=== PATIENT | female | born 1940 | race Caucasian/White ===

== ENCOUNTER 2016-08-31 17:01 | Inpatient (IN) | payer MEDICARE, OTHER ==
[~2016-08-31] VITALS: Ht 157.5 cm; Wt 90.2 kg
[~2016-08-31 17:01] MED LIST: CYMB30CA PO; ENAL5TAB98 PO; LEVO100T4 PO; METF850T PO; OXYC15TA3 PO; OXYC1SOL5 PO; RIVA10 PO; ROSU10 PO
--- NOTE | 2016-08-31 17:10 | PD ---
HPI Chief Complaint: dyspnea Time Seen by Provider: 17:06 Travel History International Travel<30 days: No Contact w/Intl Traveler<30days: No History of Present Illness HPI Patient comes in complaining of dyspnea ongoing for approximately 2-3 days. Patient states yesterday she began having some edema bilateral lower extremities. Patient denies a history of CHF or other heart disease. Patient reports history of COPD and states this does not feel the same. Patient states she's had increased dyspnea on exertion and and has had to walk shorter and shorter distances secondary to the dyspnea. Patient saw her primary care doctor today reported have O2 sats in the upper 80s and was sent to the emergency department via EMS for further treatment and evaluation. Patient denies any nausea, vomiting, chest pain, back pain, dull pain, headache, numbness or tingling anywhere, or diaphoresis. PFSH Past Medical History Arthritis: Yes Asthma: No Autoimmune Disease: No Blood Disorders: No Anxiety: No Depression: No Heart Rhythm Problems: No Cancer: No Cardiovascular Problems: Yes High Cholesterol: Yes Chemotherapy: No Chest Pain: No Congestive Heart Failure: No COPD: No Cerebrovascular Accident: No Diabetes: Yes Diminished Hearing: No Endocrine: Yes Gastrointestinal Disorders: Yes GERD: Yes (GERD) Glaucoma: No Genitourinary: No Headaches: No Hepatitis: No Hiatal Hernia: No Hypertension: Yes Immune Disorder: No Implanted Vascular Access Dvce: Yes Kidney Stones: No Musculoskeletal: Yes Neurologic: Yes (NEUROPATHY R/T DM) Psychiatric: No Reproductive: No Respiratory: No Migraines: No Myocardial Infarction: No Radiation Therapy: No Renal Failure: No Seizures: No Sickle Cell Disease: No Sleep Apnea: No Thyroid Disease: Yes (HYPOTHYROID) Ulcer: No Menopausal: Yes Tubal Ligation: Yes Past Surgical History Abdominal Surgery: No AICD: No Appendectomy: No Arteriovenous Shunt: No Body Medical Devices: LUMBAR HARDWARE Cardiac Surgery: No Cholecystectomy: No Ear Surgery: No Endocrine Surgery: No Eye Surgery: Yes (BILATERAL CATARACT REMOVAL) Genitourinary Surgery: No Gynecologic Surgery: Yes (TUBAL LIGATION) Insulin Pump: No Joint Replacement: Yes (RIGHT KNEE, LEFT HIP) Neurologic Surgery: Yes (LUMBAR LAMINECTOMY WITH FUSION 2002) Oral Surgery: Yes (TONSILLECTOMY) Pacemaker: No Thoracic Surgery: No Tonsillectomy: Yes Other Surgery: Yes (spinal fusion L4-L5) Social History Alcohol Use: No Tobacco Use: No Substance Use: No Allergies-Medications (Allergen,Severity, Reaction): Coded Allergies: Ciprofloxacin (Unverified Allergy, Severe, RASH, ITCH, 08/31/16) Reported Meds & Prescriptions Reported Meds & Active Scripts Active Reported Oxycodone (Oxycodone HCl) 15 Mg Tab 15 Mg PO Q6H PRN Crestor (Rosuvastatin Calcium) 10 Mg Tab 10 Mg PO HS Metformin (Metformin HCl) 850 Mg Tab 850 Mg PO TIDPC With meals Biotin 5 Mg Tab 5 Mg PO DAILY Levothyroxine (Levothyroxine Sodium) 100 Mcg Tab 100 Mcg PO DAILY Aspir-81 (Aspirin) 81 Mg Tabdr 81 Mg PO DAILY Albuterol Neb (Albuterol Sulfate) 2.5 Mg/3 Ml Neb 2.5 Mg NEB Q6HR NEB PRN Zyrtec Allergy (Cetirizine HCl) 10 Mg Tab 10 Mg PO DAILY Enalapril (Enalapril Maleate) 10 Mg Tab 10 Mg PO BID Proair Hfa 8.5 GM Inh (Albuterol Sulfate) 90 Mcg/Act Aer 2 Puff INH QID PRN 108 mcg/actuation Stiolto Respimat Inh (Tiotropium-Olodaterol Inh) 2.5-2.5 Mcg/Act Aero 1 Puff INH BID Review of Systems Except as stated in HPI: all other systems reviewed are Neg Physical Exam Narrative GENERAL: Well-developed, overly nourished, in no acute distress, and non-ill appearing. SKIN: Warm and dry. HEAD: Atraumatic. Normocephalic. EYES: Pupils equal and round. EOMI. No scleral icterus. No injection or drainage. ENT: No nasal bleeding or discharge. Mucous membranes pink and moist. NECK: Trachea midline. Supple. No nuclear rigidity. CARDIOVASCULAR: Regular rate and rhythm. No murmur appreciated. RESPIRATORY: No accessory muscle use. No respiratory distress. Decreased breath sounds throughout. Breath sounds equal bilaterally. GASTROINTESTINAL: Abdomen soft, non-tender, nondistended. Hepatic and splenic margins not palpable. Normal bowel sounds 4. No pulsatile mass. MUSCULOSKELETAL: No obvious deformities. No clubbing. No cyanosis. 1+ pitting edema bilateral lower extremities. Full range of motion. NEUROLOGICAL: Awake and alert. No obvious cranial nerve deficits. Motor grossly within normal limits. Normal speech. PSYCHIATRIC: Appropriate mood and affect; insight and judgment normal. Data Data Last Documented VS Vital Signs Date Time Temp Pulse Resp B/P Pulse Ox O2 Delivery O2 Flow Rate FiO2 08/31/16 19:25 65 18 99 Room Air 08/31/16 19:25 98.1 178/76 08/31/16 17:44 2 Orders Complete Blood Count With Diff (08/31/16 17:04) Comprehensive Metabolic Panel (08/31/16 17:04) B-Type Natriuretic Peptide (08/31/16 17:04) Act Partial Throm Time (Ptt) (08/31/16 17:04) Prothrombin Time / Inr (Pt) (08/31/16 17:04) Ckmb (Isoenzyme) Profile (08/31/16 17:04) Troponin I (08/31/16 17:04) Urinalysis - C+S If Indicated (08/31/16 17:04) Iv Access Insert/Monitor (08/31/16 17:04) Electrocardiogram (08/31/16 17:04) Ecg Monitoring (08/31/16 17:04) Oximetry (08/31/16 17:04) Oxygen Administration (08/31/16 17:04) Chest, Single Ap (08/31/16 17:04) Sodium Chloride 0.9% Flush (Ns Flush) (08/31/16 17:15) Urine Culture (08/31/16 17:45) CKMB (08/31/16 17:45) CKMB% (08/31/16 17:45) Ct Pulmonary Angiogram (08/31/16 ) Albuterol-Ipratropium Neb (Duoneb Neb) (08/31/16 19:30) Iohexol 350 Inj (Omnipaque 350 Inj) (08/31/16 22:52) Labs Laboratory Tests Test 08/31/16 17:45 White Blood Count 7.7 TH/MM3 Red Blood Count 4.07 MIL/MM3 Hemoglobin 11.8 GM/DL Hematocrit 35.8 % Mean Corpuscular Volume 88.1 FL Mean Corpuscular Hemoglobin 29.1 PG Mean Corpuscular Hemoglobin 33.0 % Concent Red Cell Distribution Width 13.8 % Platelet Count 240 TH/MM3 Mean Platelet Volume 8.7 FL Neutrophils (%) (Auto) 63.7 % Lymphocytes (%) (Auto) 20.3 % Monocytes (%) (Auto) 7.3 % Eosinophils (%) (Auto) 8.1 % Basophils (%) (Auto) 0.6 % Neutrophils # (Auto) 4.9 TH/MM3 Lymphocytes # (Auto) 1.6 TH/MM3 Monocytes # (Auto) 0.6 TH/MM3 Eosinophils # (Auto) 0.6 TH/MM3 Basophils # (Auto) 0.0 TH/MM3 CBC Comment DIFF FINAL Differential Comment Prothrombin Time 10.7 SEC Prothromb Time International 1.0 RATIO Ratio Activated Partial 24.0 SEC Thromboplast Time Urine Color LIGHT-YELLOW Urine Turbidity CLEAR Urine pH 7.0 Urine Specific [place] 1.010 Urine Protein TRACE mg/dL Urine Glucose (UA) NEG mg/dL Urine Ketones NEG mg/dL Urine Occult Blood NEG Urine Nitrite NEG Urine Bilirubin NEG Urine Urobilinogen LESS THAN 2.0 MG/DL Urine Leukocyte Esterase NEG Urine RBC 1 /hpf Urine WBC 1 /hpf Urine Bacteria MANY /hpf Microscopic Urinalysis Comment CULTURE INDICATED Sodium Level 141 MEQ/L Potassium Level 4.1 MEQ/L Chloride Level 105 MEQ/L Carbon Dioxide Level 28.2 MEQ/L Anion Gap 8 MEQ/L Blood Urea Nitrogen 22 MG/DL Creatinine 1.13 MG/DL Estimat Glomerular Filtration 47 ML/MIN Rate Random Glucose 119 MG/DL Calcium Level 9.2 MG/DL Total Bilirubin 0.4 MG/DL Aspartate Amino Transf 19 U/L (AST/SGOT) Alanine Aminotransferase 21 U/L (ALT/SGPT) Alkaline Phosphatase 79 U/L Total Creatine Kinase 159 U/L Creatine Kinase MB 3.2 NG/ML Troponin I 0.02 NG/ML B-Type Natriuretic Peptide 190 PG/ML Total Protein 7.6 GM/DL Albumin 3.9 GM/DL [facility] Medical Decision Making Medical Screen Exam Complete: Yes Emergency Medical Condition: Yes Differential Diagnosis CHF exacerbation, COPD exacerbation, pneumonia, acute coronary syndrome, PE, other Narrative Course Patient seen and examined. Initial O2 radiology studies were obtained and reviewed. CTA was ordered to rule out PE which is currently pending. Patient was signed out to Dr. Joe pending CTA results. Please see her documentation for final diagnosis and disposition. Florentin Coffman Aug 31, 2016 17:10
[2016-08-31] MEDS ORDERED: SODIUM CHLORIDE 0.9% FLUSH 5 ML FLUSH IVF PRN (17:15)
--- NOTE | 2016-08-31 17:30 | RADRPT ---
EXAM DATE/TIME: 08/31/2016 17:21 [facility] COMPARISON: No previous studies available for comparison. INDICATIONS : Short of breath. MEDICAL HISTORY : SURGICAL HISTORY : ENCOUNTER: Initial ACUITY: 1 day PAIN SCORE: 5/10 LOCATION: Bilateral upper chest FINDINGS: A single view of the chest demonstrates the lungs to be symmetrically aerated without evidence of mas s, infiltrate or effusion. The cardiomediastinal contours are unremarkable with mild atherosclerotic changes of aorta.. Osseous structures are intact. CONCLUSION: No acute disease. Anthony Lane MD on August 31, 2016 at 17:28 Board Certified Radiologist. This report was verified electronically.
[2016-08-31 17:39] VITALS: BP 168/73; PULSE 70; RESP 22; TEMP 98.7; O2SAT 88
[2016-08-31 17:41] VITALS: BP 168/73; PULSE 70; RESP 24; O2SAT 99
[2016-08-31 18:26] LABS: BACTERIA, URINE MANY /hpf; BLOOD, URINE NEG (NEG); COMMENT (UR) CULTURE INDICATED; CULTURE IF INDICATED CULTURE INDICATED; GLUCOSE,URINE NEG (NEG); KETONE, URINE NEG (NEG); NITRITE,URINE NEG (NEG); URINE COLOR LIGHT-YELLOW (YELLW/STRAW)
[2016-08-31] MEDS ORDERED: LEVO100T5 PO (18:30)
[2016-08-31] MEDS ORDERED: OXYC15TA PO (18:30)
[2016-08-31] MEDS ORDERED: METF850T PO (18:30)
[2016-08-31] MEDS ORDERED: ALBU0.08 NEB (18:30)
[2016-08-31] MEDS ORDERED: BIOT5TAB PO (18:30)
[2016-08-31] MEDS ORDERED: ZYRT10TA PO (18:30)
[2016-08-31] MEDS ORDERED: ROSU10 PO (18:30)
[2016-08-31] MEDS ORDERED: ENAL10TA PO (18:30)
[2016-08-31] MEDS ORDERED: ASPI81TA81 PO (18:30)
[2016-08-31] MEDS ORDERED: ALBUAER3 INH (18:30)
[2016-08-31] MEDS ORDERED: TIOT1AER INH (18:30)
--- NOTE | 2016-08-31 18:37 | PD ---
Physical Exam Date Seen by Provider: Aug 31, 2016 Time Seen by Provider: 17:30 Narrative I, Dr. Virk, have reviewed the advance practice practitioner's documentation and am in agreement, met with the patient face to face, made the diagnosis, and the medical decision making was done by me. *My assessment and Findings: Patient seen and evaluated with PA, please see PA note for further details. Here with shortness of breath, leg swelling, 2 pillow orthopnea, which she states is new to her, does not feel like her previous COPD. On exam, she has mild respiratory distress, I hear bibasilar crackles up to the mid lung. Worse on the right than the left. Bilateral leg swelling. Lab work, BNP, chest x-ray was ordered for the patient. Last 24 hours Impressions Chest X-Ray 08/31/16 1704 Signed Impressions: Service Date/Time: Wednesday, August 31, 2016 17:21 - CONCLUSION: No acute disease. Anthnoy Lane MD Laboratory Tests Test 08/31/16 17:45 Eosinophils (%) (Auto) 8.1 % (0.0-4.0) Eosinophils # (Auto) 0.6 TH/MM3 (0-0.4) Activated Partial 24.0 SEC Thromboplast Time (24.3-30.1) Urine Bacteria MANY /hpf (NONE) Blood Urea Nitrogen 22 MG/DL (7-18) Creatinine 1.13 MG/DL (0.50-1.00) Estimat Glomerular Filtration 47 ML/MIN (>89) Rate Random Glucose 119 MG/DL (74-106) B-Type Natriuretic Peptide 190 PG/ML (0-100) Chest x-ray did not show any signs of acute processes. Patient was given Lasix and nebulizers in the ER. CTA ordered for further evaluation of new leg swelling and shortness of breath. Rule out PE. Data Data Last Documented VS Vital Signs Date Time Temp Pulse Resp B/P Pulse Ox O2 Delivery O2 Flow Rate FiO2 08/31/16 17:44 99 Nasal Cannula 2 08/31/16 17:41 70 24 168/73 08/31/16 17:39 98.7 Orders Complete Blood Count With Diff (08/31/16 17:04) Comprehensive Metabolic Panel (08/31/16 17:04) B-Type Natriuretic Peptide (08/31/16 17:04) Act Partial Throm Time (Ptt) (08/31/16 17:04) Prothrombin Time / Inr (Pt) (08/31/16 17:04) Ckmb (Isoenzyme) Profile (08/31/16 17:04) Troponin I (08/31/16 17:04) Urinalysis - C+S If Indicated (08/31/16 17:04) Iv Access Insert/Monitor (08/31/16 17:04) Electrocardiogram (08/31/16 17:04) Ecg Monitoring (08/31/16 17:04) Oximetry (08/31/16 17:04) Oxygen Administration (08/31/16 17:04) Chest, Single Ap (08/31/16 17:04) Sodium Chloride 0.9% Flush (Ns Flush) (08/31/16 17:15) Urine Culture (08/31/16 17:45) CKMB (08/31/16 17:45) CKMB% (08/31/16 17:45) Ct Pulmonary Angiogram (08/31/16 ) Albuterol-Ipratropium Neb (Duoneb Neb) (08/31/16 19:30) Labs Laboratory Tests Test 08/31/16 17:45 White Blood Count 7.7 TH/MM3 Red Blood Count 4.07 MIL/MM3 Hemoglobin 11.8 GM/DL Hematocrit 35.8 % Mean Corpuscular Volume 88.1 FL Mean Corpuscular Hemoglobin 29.1 PG Mean Corpuscular Hemoglobin 33.0 % Concent Red Cell Distribution Width 13.8 % Platelet Count 240 TH/MM3 Mean Platelet Volume 8.7 FL Neutrophils (%) (Auto) 63.7 % Lymphocytes (%) (Auto) 20.3 % Monocytes (%) (Auto) 7.3 % Eosinophils (%) (Auto) 8.1 % Basophils (%) (Auto) 0.6 % Neutrophils # (Auto) 4.9 TH/MM3 Lymphocytes # (Auto) 1.6 TH/MM3 Monocytes # (Auto) 0.6 TH/MM3 Eosinophils # (Auto) 0.6 TH/MM3 Basophils # (Auto) 0.0 TH/MM3 CBC Comment DIFF FINAL Differential Comment Prothrombin Time 10.7 SEC Prothromb Time International 1.0 RATIO Ratio Activated Partial 24.0 SEC Thromboplast Time Urine Color LIGHT-YELLOW Urine Turbidity CLEAR Urine pH 7.0 Urine Specific [place] 1.010 Urine Protein TRACE mg/dL Urine Glucose (UA) NEG mg/dL Urine Ketones NEG mg/dL Urine Occult Blood NEG Urine Nitrite NEG Urine Bilirubin NEG Urine Urobilinogen LESS THAN 2.0 MG/DL Urine Leukocyte Esterase NEG Urine RBC 1 /hpf Urine WBC 1 /hpf Urine Bacteria MANY /hpf Microscopic Urinalysis Comment CULTURE INDICATED Sodium Level 141 MEQ/L Potassium Level 4.1 MEQ/L Chloride Level 105 MEQ/L Carbon Dioxide Level 28.2 MEQ/L Anion Gap 8 MEQ/L Blood Urea Nitrogen 22 MG/DL Creatinine 1.13 MG/DL Estimat Glomerular Filtration 47 ML/MIN Rate Random Glucose 119 MG/DL Calcium Level 9.2 MG/DL Total Bilirubin 0.4 MG/DL Aspartate Amino Transf 19 U/L (AST/SGOT) Alanine Aminotransferase 21 U/L (ALT/SGPT) Alkaline Phosphatase 79 U/L Total Creatine Kinase 159 U/L Creatine Kinase MB 3.2 NG/ML Troponin I 0.02 NG/ML B-Type Natriuretic Peptide 190 PG/ML Total Protein 7.6 GM/DL Albumin 3.9 GM/DL [facility] Medical Record Reviewed: Yes Supervised Visit with MART: Yes Differential Diagnosis CHF versus pneumonia versus COPD exacerbation versus bronchitis versus PE Diagnosis Primary Impression: SHORTNESS OF BREATH Condition: Stable Pia Virk MD Aug 31, 2016 18:37
[2016-08-31 18:48] LABS: AUTOMATED NEUTROPHIL # 4.9 TH/MM3 (1.8-7.7); BASOPHIL % 0.6 % (0.0-2.0); EOSINOPHIL # 0.6 TH/MM3 (0-0.4); EOSINOPHIL % 8.1 % (0.0-4.0); HEMATOCRIT 35.8 % (35.0-46.0); HEMO FLAGS DIFF FINAL; LYMPH % 20.3 % (9.0-44.0); LYMPHOCYTE # 1.6 TH/MM3 (1.0-4.8); MEAN CELL VOLUME 88.1 FL (80.0-100.0); MEAN CORPUSCULAR HEMOGLOBIN 29.1 PG (27.0-34.0); MONO % 7.3 % (0.0-8.0); NEUT % 63.7 % (16.0-70.0); PLATELET COUNT 240 TH/MM3 (150-450); RED BLOOD COUNT 4.07 MIL/MM3 (4.00-5.30); RED CELL DISTRIBUTION WIDTH 13.8 % (11.6-17.2); WHITE BLOOD COUNT 7.7 TH/MM3 (4.0-11.0)
[2016-08-31 18:59] LABS: PROTHROMBIN TIME - PATIENT 10.7 SEC (9.8-11.6)
[2016-08-31 19:04] LABS: ANION GAP 8 MEQ/L (5-15); AST (GOT) 19 U/L (15-37); BICARBONATE 28.2 MEQ/L (21.0-32.0); BLOOD UREA NITROGEN 22 MG/DL (7-18); CHLORIDE 105 MEQ/L (98-107); GLOMERULAR FILTRATION RATE 47 ML/MIN (>89); POTASSIUM 4.1 MEQ/L (3.5-5.1); SODIUM (NA) 141 MEQ/L (136-145)
[2016-08-31 19:09] LABS: ALKALINE PHOSPHATASE 79 U/L (45-117); ALT (GPT) 21 U/L (10-53); CREATINE KINASE 159 U/L (26-192); TOTAL BILIRUBIN ADULT 0.4 MG/DL (0.2-1.0)
[2016-08-31 19:21] LABS: CKMB 3.2 NG/ML (0.5-3.6)
[2016-08-31 19:25] VITALS: BP 178/76; PULSE 67; RESP 18; TEMP 98.1; O2SAT 99
[2016-08-31] MEDS ORDERED: RESP: ALBUTEROL 2.5 MG/IPRATROPIUM 0.5 MG NEB (SCH) INH ONE (19:30)
--- NOTE | 2016-08-31 19:53 | PD ---
Physical Exam Narrative General: The patient is a well-developed well-nourished female in no acute distress Head and Neck exam: Head is normocephalic atraumatic. Eyes: Pupils are equal round and reactive to light. Nose: Midline septum with pink mucous membranes Mouth: Dentition unremarkable. Moist mucus membranes. Posterior oropharynx is not erythematous. No tonsillar hypertrophy. Uvula midline. Airway patent. Neck: No palpable lymphadenopathy. No nuchal rigidity. No thyromegaly. Cardiovascular: Regular rate and rhythm without murmurs, gallops, or rubs. No pulse deficit to the extremities and simultaneous auscultation and palpation of the radial artery. Lungs: Soft expiratory wheezes audible on the left lower lung base, no rhonchi or crackles are audible bilaterally. She is saturating 98% on nasal cannula oxygen. Abdomen: Soft, without tenderness to palpation in all 4 quadrants of the abdomen. No guarding, rebound, or rigidity. Normal bowel sounds are audible. Extremities: No clubbing or cyanosis.Trace to 1 plus pitting edema of bilateral lower extremities. Neurologic Exam: Grossly nonfocal. Data Data Last Documented VS Vital Signs Date Time Temp Pulse Resp B/P Pulse Ox O2 Delivery O2 Flow Rate FiO2 08/31/16 23:06 79 18 181/77 96 Nasal Cannula 2 08/31/16 19:25 98.1 Orders Complete Blood Count With Diff (08/31/16 17:04) Comprehensive Metabolic Panel (08/31/16 17:04) B-Type Natriuretic Peptide (08/31/16 17:04) Act Partial Throm Time (Ptt) (08/31/16 17:04) Prothrombin Time / Inr (Pt) (08/31/16 17:04) Ckmb (Isoenzyme) Profile (08/31/16 17:04) Troponin I (08/31/16 17:04) Urinalysis - C+S If Indicated (08/31/16 17:04) Iv Access Insert/Monitor (08/31/16 17:04) Electrocardiogram (08/31/16 17:04) Ecg Monitoring (08/31/16 17:04) Oximetry (08/31/16 17:04) Oxygen Administration (08/31/16 17:04) Chest, Single Ap (08/31/16 17:04) Sodium Chloride 0.9% Flush (Ns Flush) (08/31/16 17:15) Urine Culture (08/31/16 17:45) CKMB (08/31/16 17:45) CKMB% (08/31/16 17:45) Ct Pulmonary Angiogram (08/31/16 ) Albuterol-Ipratropium Neb (Duoneb Neb) (08/31/16 19:30) Iohexol 350 Inj (Omnipaque 350 Inj) (08/31/16 22:52) Enalaprilat Inj (Vasotec Inj) (08/31/16 23:15) Methylprednisolone So Succ Inj (Solumedr (09/01/16 00:00) Admit Order (Ed Use Only) (08/31/16 23:51) Labs Laboratory Tests Test 08/31/16 17:45 Prothrombin Time 10.7 SEC Prothromb Time International 1.0 RATIO Ratio Activated Partial 24.0 SEC Thromboplast Time Sodium Level 141 MEQ/L Potassium Level 4.1 MEQ/L Chloride Level 105 MEQ/L Carbon Dioxide Level 28.2 MEQ/L Anion Gap 8 MEQ/L Blood Urea Nitrogen 22 MG/DL Creatinine 1.13 MG/DL Estimat Glomerular Filtration 47 ML/MIN Rate Random Glucose 119 MG/DL Calcium Level 9.2 MG/DL Total Bilirubin 0.4 MG/DL Aspartate Amino Transf 19 U/L (AST/SGOT) Alanine Aminotransferase 21 U/L (ALT/SGPT) Alkaline Phosphatase 79 U/L Total Creatine Kinase 159 U/L Creatine Kinase MB 3.2 NG/ML Troponin I 0.02 NG/ML B-Type Natriuretic Peptide 190 PG/ML Total Protein 7.6 GM/DL Albumin 3.9 GM/DL White Blood Count 7.7 TH/MM3 Red Blood Count 4.07 MIL/MM3 Hemoglobin 11.8 GM/DL Hematocrit 35.8 % Mean Corpuscular Volume 88.1 FL Mean Corpuscular Hemoglobin 29.1 PG Mean Corpuscular Hemoglobin 33.0 % Concent Red Cell Distribution Width 13.8 % Platelet Count 240 TH/MM3 Mean Platelet Volume 8.7 FL Neutrophils (%) (Auto) 63.7 % Lymphocytes (%) (Auto) 20.3 % Monocytes (%) (Auto) 7.3 % Eosinophils (%) (Auto) 8.1 % Basophils (%) (Auto) 0.6 % Neutrophils # (Auto) 4.9 TH/MM3 Lymphocytes # (Auto) 1.6 TH/MM3 Monocytes # (Auto) 0.6 TH/MM3 Eosinophils # (Auto) 0.6 TH/MM3 Basophils # (Auto) 0.0 TH/MM3 CBC Comment DIFF FINAL Differential Comment Urine Color LIGHT-YELLOW Urine Turbidity CLEAR Urine pH 7.0 Urine Specific [place] 1.010 Urine Protein TRACE mg/dL Urine Glucose (UA) NEG mg/dL Urine Ketones NEG mg/dL Urine Occult Blood NEG Urine Nitrite NEG Urine Bilirubin NEG Urine Urobilinogen LESS THAN 2.0 MG/DL Urine Leukocyte Esterase NEG Urine RBC 1 /hpf Urine WBC 1 /hpf Urine Bacteria MANY /hpf Microscopic Urinalysis Comment CULTURE INDICATED MDM Medical Record Reviewed: Yes Supervised Visit with MART: Yes Interpretation(s) Last Impressions Chest X-Ray 08/31/16 1707 Signed Impressions: Service Date/Time: Wednesday, August 31, 2016 17:21 - CONCLUSION: No acute disease. Anthony Lane MD Differential Diagnosis COPD exacerbation, versus pneumonia, versus congestive heart failure exacerbation, versus pulmonary embolus Narrative Course I, Dr. Joe, have reviewed the advance practice practitioner's documentation and am in agreement, met with the patient face to face, made the diagnosis, and the medical decision making was done by me. The patient was initially evaluated by Florentin, the physician carpenter assistant. Please see his complete history and physical. *My assessment and Findings: The patient is a 76-year-old female who presents to [facility] emergency Department with a history of shortness of breath that she reports seem to be different from her usual COPD exacerbation and began approximately 3 days ago. She denies having a productive cough. She reports that she does have lower extremity edema which is also new. She denies having any associated chest pain. She denies having any nausea or vomiting. She denies having any diarrhea. The patient's physical examination was remarkable for some mild wheezing, hypoxemia on room air improved with the nebulizer treatment and supplemental nasal cannula O2. Her initial workup ensued including laboratory studies and a chest x-ray. Her laboratory studies are remarkable for white count 7.7, hemoglobin 11.8, platelets 240 with eosinophils of 8.1, CMP is remarkable for BUN of 22, creatinine 1.13, glucose 119 initial set of cardiac enzymes are negative, BNP is 190, INR 1.0, urinalysis is unremarkable. Chest x-ray showed no acute abnormality. A CTA to rule out PE has been ordered. The patient was treated with nebulizer treatments , Solu-Medrol 125 mg IV was administered. CTA to rule out pulmonary embolism was negative. The patient will be admitted to the hospital for continued evaluation and treatment, hypoxemia on room air. The patients results were discussed with the patient, including the plan of care. I explained that further testing and/ or monitoring is indicated based on the patients history, examination, and/ or laboratory findings. Therefore, I recommended admission for additional evaluation. The patient expressed understanding and was agreeable with this plan. The patient was admitted to the hospital in stable condition and [facility] Physician Communication Physician Communication The patient's case was discussed with Keaton Simental, he did agree to admit the patient for further evaluation and treatment at [facility]. Diagnosis Primary Impression: SHORTNESS OF BREATH Additional Impression: COPD exacerbation Admitting Information Admitting Physician Requests: Observation Condition: Stable Sola Joe MD Aug 31, 2016 19:53
[2016-08-31] MEDS ORDERED: IOHEXOL 350 MG/ML 10 ML VIAL (for RAD DIAG) IV ONE (22:52)
[2016-08-31 23:06] VITALS: BP 181/77; PULSE 79; RESP 18; O2SAT 96
--- NOTE | 2016-08-31 23:08 | RADRPT ---
EXAM DATE/TIME: 08/31/2016 22:49 [facility] COMPARISON: No previous studies available for comparison. INDICATIONS : Shortness of breath for three days. IV CONTRAST: 71 cc Omnipaque 350 (iohexol) IV RADIATION DOSE: 23.38 CTDIvol (mGy) MEDICAL HISTORY : Gastroesophageal reflux disease. Deep venous thrombosis. SURGICAL HISTORY : None. ENCOUNTER: Initial ACUITY: 3 days PAIN SCALE: 0/10 LOCATION: chest TECHNIQUE: Volumetric scanning of the chest was performed using a pulmonary embolism protocol MIP images were re constructed. Using automated exposure control and adjustment of the mA and/or kV according to patien t size, radiation dose was kept as low as reasonably achievable to obtain optimal diagnostic quality images. Images are somewhat limited due to motion artifact. FINDINGS: PULMONARY ARTERIES: No definite filling defects are seen in the pulmonary arteries through the segmental level. LUNGS: There is central lobar and bullous emphysema throughout both lung lui characteristic for COPD. The re is chronic interstitial changes bilaterally. No acute pulmonary infiltrates are demonstrated. PLEURAE: There is no pleural thickening or pleural effusion. MEDIASTINUM: There is a nonspecific mildly prominent lymph nodes in the mediastinum. There is a pretracheal lymph node measuring 2.1 cm and a subcarinal lymph node measuring 2.7 cm. The heart size is enlarged. MUSCULOSKELETAL: Within normal limits for patient age. Bony degenerative changes. MISCELLANEOUS: The visualized upper abdominal organs demonstrate no acute abnormality. CONCLUSION: 1. No evidence of pulmonary embolism 2. 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 3. No acute pulmonary infiltrates 4. Several prominent nonspecific mediastinal lymph nodes. If clinically indicated, a PET/CT could be performed for further evaluation on a nonemergent outpatient basis.. Contreras Gorman MD on August 31, 2016 at 23:01 Board Certified Radiologist. This report was verified electronically.
[2016-08-31] MEDS ORDERED: ENALAPRILAT 1.25 MG/ML VIAL IV PUSH ONE (23:15)
[2016-09-01] VITALS (8 sets, daily range): BP systolic 134–188; BP diastolic 60–81; PULSE 66–98; RESP 16–18; TEMP 98.1–98.4; O2SAT 93–100
[2016-09-01] MEDS ORDERED: BISACODYL 10 MG SUPP PR PRN
[2016-09-01] MEDS ORDERED: ONDANSETRON HCL 4 MG/2 ML VIAL IVP PRN
[2016-09-01] MEDS ORDERED: SODIUM CHLORIDE 0.9% FLUSH 5 ML FLUSH IVF PRN
[2016-09-01] MEDS ORDERED: RESP: ALBUTEROL 2.5 MG/3 ML NEB (PRN) INH
[2016-09-01] MEDS ORDERED: SENNOSIDES 8.6 MG TAB PO PRN
[2016-09-01] MEDS ORDERED: ACETAMINOPHEN 325 MG TAB PO PRN
[2016-09-01] MEDS ORDERED: methylPREDNISolone SOD SUCC 125 MG/2 ML VIAL IV PUSH ONE
[2016-09-01] MEDS ORDERED: TEMAZEPAM 7.5 MG CAP PO PRN (00:30)
[2016-09-01] MEDS ORDERED: GLUCAGON 1 MG/ML VIAL OTHER PRN (00:45)
[2016-09-01] MEDS ORDERED: cloNIDine HCL 0.1 MG TAB PO PRN (00:45)
[2016-09-01] MEDS ORDERED: DEXTROSE 50% IN WATER 50 ML VIAL(D50) IV PUSH PRN (00:45)
[2016-09-01] MEDS: ENOXAPARIN SODIUM 40 MG/0.4 ML SYRINGE SQ SCH ×2 (01:01→23:23)
[2016-09-01] MEDS: ENALAPRIL MALEATE 10 MG TAB PO SCH ×3 (01:46→20:57)
[2016-09-01] MEDS: RESP: ALBUTEROL 2.5 MG/IPRATROPIUM 0.5 MG NEB (SCH) INH ×4 (04:44→20:41)
[2016-09-01] MEDS: INSULIN NovoLIN REGULAR SUPPLEMENTAL SCALE SQ SCH ×4 (07:00→20:57)
[2016-09-01] MEDS: methylPREDNISolone SOD SUCC 125 MG/2 ML VIAL IVP SCH ×4 (07:30→23:20)
[2016-09-01] MEDS: SODIUM CHLORIDE 0.9% FLUSH 5 ML FLUSH IVF SCH ×2 (09:42→20:58)
--- NOTE | 2016-09-01 09:43 | MH ---
cc: ABDIAS MOCTEZUMA MD DATE OF ADMISSION 08/31/[address] Duncan CHIEF COMPLAINT Shortness of breath HISTORY OF PRESENT ILLNESS This is a pleasant 76 year-old female with a known history of COPD. She does take inhalers and uses as needed oxygen at home for her history of COPD who feels like she has become more short of breath over the last several days. She felt like she had a little bit of edema yesterday in her right leg. Today, it seems like it was more in the left leg. She went to see Dr. Duncan today who was concerned and sent her to the emergency room. The patient states she has not been coughing. She is not having any chest pain or chest pressure. She does have some shortness of breath with exertion. She is not complaining of shortness of breath at rest. She is not having fever, chills, nausea or vomiting. She is taking her medication as prescribed and she denies any other specific changes in her recent health. MEDICATIONS On admission, please see the chart. ALLERGIES CIPROFLOXACIN PAST MEDICAL HISTORY Includes: 1. Hypertension 2. Diabetes 3. Hypothyroidism 4. GERD 5. Neuropathy PAST SURGICAL HISTORY 1. Tubal ligation 2. An L4-5 fusion 3. Bilateral total knee replacements 4. Left total hip replacement 5. Tonsillectomy 6. Bilateral cataracts SOCIAL HISTORY The patient quit smoking 20 years. She has been for 14 years (her from COPD). Alcohol is very rare. FAMILY HISTORY Noncontributory to this admission. REVIEW OF SYSTEMS The patient states she has more fatigued and has been for several months. Her weight has been stable. Her blood sugars have been stable running between 99 and 126. She had a bout of COPD exacerbation in July and was placed on steroids and felt better with those. A 12-point review of systems shows no other pertinent findings. Also, she states she has seen Dr. Peterson in the past and has had an echocardiogram several years ago and it was reported to be normal. PHYSICAL EXAMINATION VITAL SIGNS: Afebrile, pulse 79, respirations 18, blood pressure 181/77, O2 sat is 96% on two liters. GENERAL: This is a 76 year-old female resting comfortably in bed in no acute distress. HEAD, EYES, EARS, NOSE, AND THROAT: Mucous membranes are moist. NECK: Supple. CARDIOVASCULAR: Regular rate and rhythm. RESPIRATORY: Breath sounds are diminished, few expiratory wheezes. GASTROINTESTINAL: Bowel sounds are present. No point tenderness, guarding or rebound. GENITOURINARY: No CVA tenderness. EXTREMITIES: Perfused. MUSCULOSKELETAL: Evidence of bilateral total knee replacements are noted. Evidence of a lumbar spinal surgery is noted. Trace left lower extremity edema. Hal's is negative. Distal pulses are palpable. No edema in the leg. NEUROLOGIC: Awake, alert and oriented. Speech is clear and fluent. Moving all extremities freely. Gait and station is not tested. INVESTIGATIONS CBC is normal. BUN is 22, creatinine is 1.13, GFR is estimated at 47, random glucose is 119, BNP is 190, troponin's normal. CPK normal. LFT's are normal. Urinalysis shows many bacteria. No nitrogen. No blood. No leukocyte esterase. INR is 1. Chest x-ray, no acute disease. Angiography of the chest showed: 1. No evidence of PE. 2. COPD with bullous emphysema 3. Chronic interstitial changes 4. No infiltrates. 5. Several prominent non-specific mediastinal nodes IMPRESSION 1. COPD exacerbation 2. Chronic kidney disease 3. Diabetes 4. Asymptomatic bacteruria DISCUSSION The patient is admitted to Dr. Moctezuma's services. The patient meets inpatient criteria because of her COPD exacerbation and her hypoxia on admission. Without hospitalization, she would be at a high risk of respiratory failure. During her hospital stay, she will be placed on IV steroids, nebulizers and oxygen. DVT prophylaxis will be provided. We will resume her home medications as indicated. The patient will be monitored closely and discharged when she is stable. Anticipated length of stay is three days. Anticipated discharge is home. Dictated by: Keaton Simental PA-C MD ROSIBEL Wolfe/MIGUEL ANGEL /12:28 AM /9:20 AM pt is seen & Examined d/w PT d/w Keaton palma Orders see H&P will f/u Abdias Moctezuma MD Sep 01, 2016 10:06 [facility]
--- NOTE | 2016-09-01 10:06 | HHI.PR ---
Objective Objective Results - Vital Signs Date Time Temp Pulse Resp B/P Pulse Ox O2 Delivery O2 Flow Rate FiO2 09/01/16 09:55 98 Nasal Cannula 1.00 09/01/16 09:41 74 17 188/81 94 09/01/16 04:44 100 Nasal Cannula 1.00 09/01/16 01:45 98.1 66 18 136/60 97 09/01/16 00:29 98.4 98 18 170/71 97 08/31/16 23:06 79 18 181/77 96 Nasal Cannula 2 08/31/16 19:25 65 18 99 Room Air 08/31/16 19:25 98.1 67 18 178/76 99 08/31/16 17:44 99 Nasal Cannula 2 08/31/16 17:41 98 Nasal Cannula 2 08/31/16 17:41 70 24 168/73 99 Room Air 2 08/31/16 17:39 98.7 70 22 168/73 88 Result Diagram: 08/31/16 1745 08/31/16 1745 Other Results Laboratory Tests Test 08/31/16 17:45 White Blood Count 7.7 Red Blood Count 4.07 Hemoglobin 11.8 Hematocrit 35.8 Mean Corpuscular Volume 88.1 Mean Corpuscular Hemoglobin 29.1 Mean Corpuscular Hemoglobin 33.0 Concent Red Cell Distribution Width 13.8 Platelet Count 240 Mean Platelet Volume 8.7 Neutrophils (%) (Auto) 63.7 Lymphocytes (%) (Auto) 20.3 Monocytes (%) (Auto) 7.3 Eosinophils (%) (Auto) 8.1 Basophils (%) (Auto) 0.6 Neutrophils # (Auto) 4.9 Lymphocytes # (Auto) 1.6 Monocytes # (Auto) 0.6 Eosinophils # (Auto) 0.6 Basophils # (Auto) 0.0 CBC Comment DIFF FINAL Differential Comment Prothrombin Time 10.7 Prothromb Time International 1.0 Ratio Activated Partial 24.0 Thromboplast Time Urine Color LIGHT-YELLOW Urine Turbidity CLEAR Urine pH 7.0 Urine Specific Dyer 1.010 Urine Protein TRACE Urine Glucose (UA) NEG Urine Ketones NEG Urine Occult Blood NEG Urine Nitrite NEG Urine Bilirubin NEG Urine Urobilinogen LESS THAN 2.0 Urine Leukocyte Esterase NEG Urine RBC 1 Urine WBC 1 Urine Bacteria MANY Microscopic Urinalysis Comment CULTURE INDICATED Sodium Level 141 Potassium Level 4.1 Chloride Level 105 Carbon Dioxide Level 28.2 Anion Gap 8 Blood Urea Nitrogen 22 Creatinine 1.13 Estimat Glomerular Filtration 47 Rate Random Glucose 119 Calcium Level 9.2 Total Bilirubin 0.4 Aspartate Amino Transf 19 (AST/SGOT) Alanine Aminotransferase 21 (ALT/SGPT) Alkaline Phosphatase 79 Total Creatine Kinase 159 Creatine Kinase MB 3.2 Troponin I 0.02 B-Type Natriuretic Peptide 190 Total Protein 7.6 Albumin 3.9 Date/Time Procedure Status Source Growth 08/31/16 17:45 Urine Culture Worksheet Urine Clean Catch Pending Physical Exam Physical Exam pt is seen & Examined d/w PT d/w Keaton see Orders see H&P will f/u Pat Moctezuma MD Sep 01, 2016 10:06
[2016-09-01] MEDS: metFORMIN HCL 850 MG TAB PO SCH ×2 (13:30→17:24)
--- NOTE | 2016-09-01 16:59 | EKG ---
Date Performed: 08/31/2016 Time Performed: 18:01:26 PTAGE: 76 years EKG: Sinus rhythm RIGHT BUNDLE BRANCH BLOCK LEFT ANTERIOR FASCICULAR BLOCK MINIMAL VOLTAGE CRITERIA FOR LVH, CONSIDER NORMAL VARIANT When compared to previous tracing, the patient is no longer Tachycardic. ABNORMAL ECG PREVIOUS TRACING : 04/24/2015 16.58 DOCTOR: Lilliana Reddy Interpretating Date/Time 09/01/2016 16:56:57
[2016-09-01] MEDS ORDERED: ATORVASTATIN 20 MG TAB PO SCH (21:00)
[2016-09-01] MEDS ORDERED: STIOLTO RESPIMAT INH SCH (21:00)
[2016-09-01] MEDS ORDERED: ENALAPRIL MALEATE 10 MG TAB PO SCH (21:00)
[2016-09-02] VITALS: BP 130/62; PULSE 80; RESP 16; TEMP 96.5; O2SAT 95
[2016-09-02] MEDS: RESP: ALBUTEROL 2.5 MG/IPRATROPIUM 0.5 MG NEB (SCH) INH ×2 (02:54→07:26)
[2016-09-02 04:08] VITALS: BP 143/69; PULSE 92; RESP 18; TEMP 96.6; O2SAT 95
[2016-09-02] MEDS ORDERED: LEVOTHYROXINE SODIUM 100 MCG TAB PO SCH (06:00)
[2016-09-02] MEDS: methylPREDNISolone SOD SUCC 125 MG/2 ML VIAL IVP SCH ×2 (06:08→10:36)
[2016-09-02] MEDS: INSULIN NovoLIN REGULAR SUPPLEMENTAL SCALE SQ SCH ×2 (06:14→13:06)
[2016-09-02 07:28] VITALS: O2SAT 93
[2016-09-02 08:00] VITALS: BP 142/67; PULSE 86; RESP 18; TEMP 97.4; O2SAT 94
[2016-09-02] MEDS: SODIUM CHLORIDE 0.9% FLUSH 5 ML FLUSH IVF SCH (09:00)
[2016-09-02] MEDS ORDERED: CETIRIZINE HCL 10 MG TAB PO SCH (09:00)
[2016-09-02] MEDS ORDERED: ASPIRIN EC 81 MG TABEC PO SCH (09:00)
[2016-09-02] MEDS: ENALAPRIL MALEATE 10 MG TAB PO SCH (10:35)
[2016-09-02] MEDS: metFORMIN HCL 850 MG TAB PO SCH ×2 (10:43→13:05)
--- NOTE | 2016-09-02 12:41 | HHI.PR ---
Subjective Remarks No acute chest pain No SOB No headache Appetite good. Color pink alert/oriented wants to go home. wants to take shower Objective Objective Results - Vital Signs Date Time Temp Pulse Resp B/P Pulse Ox O2 Delivery O2 Flow Rate FiO2 09/02/16 08:00 97.4 86 18 142/67 94 09/02/16 07:28 93 21 09/02/16 04:08 96.6 92 18 143/69 95 09/02/16 00:00 96.5 80 16 130/62 95 09/01/16 20:00 98.1 81 16 134/68 93 09/01/16 18:40 19 09/01/16 15:43 95 21 I/O 09/01/16 09/01/16 09/01/16 09/02/16 09/02/16 09/02/16 07:00 15:00 23:00 07:00 15:00 23:00 Intake Total 200 ml 200 ml Balance 200 ml 200 ml Intake Oral 200 ml 200 ml # Voids 1 1 # Bowel Movements 0 0 Result Diagram: 08/31/16 1745 08/31/16 1745 Other Results Last Impressions Chest X-Ray 08/31/16 1704 Signed Impressions: Service Date/Time: Wednesday, August 31, 2016 17:21 - CONCLUSION: No acute disease. Anthony Lane MD CT Angiography 08/31/16 0000 Signed Impressions: Service Date/Time: Wednesday, August 31, 2016 22:49 - CONCLUSION: 1. No evidence of pulmonary embolism 2. 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 3. No acute pulmonary infiltrates 4. Several prominent nonspecific mediastinal lymph nodes. If clinically indicated, a PET/CT could be performed for further evaluation on a nonemergent outpatient basis.. Contreras Gorman MD ROS General: Other (10 point ROS done. Unremarkable exam. No SOB) Physical Exam Physical Exam PHYSICAL EXAMINATION GENERAL: This is a 76 year-old female resting comfortably in bed in no acute distress. HEAD, EYES, EARS, NOSE, AND THROAT: Mucous membranes are moist. NECK: Supple. CARDIOVASCULAR: Regular rate and rhythm. No murmur , rub, gallop. RESPIRATORY: Breath sounds are diminished, few expiratory wheezes. GASTROINTESTINAL: Bowel sounds are present X 4 quads, No point tenderness, guarding or rebound. GENITOURINARY: No CVA tenderness. EXTREMITIES: No edema, except for trace lt. chronic MUSCULOSKELETAL: Tahir with purpose. NEUROLOGIC: Awake, alert and oriented. Speech is clear and fluent. Moving all extremities freely. Gait and station is not tested. Psy, mood /affect WNL. Objective Remarks Im ready to go home. A/P Assessment and Plan INVESTIGATIONS CBC is normal. BUN is 22, creatinine is 1.13, GFR is estimated at 47, random glucose is 119, BNP is 190, troponin's normal. CPK normal. LFT's are normal. Urinalysis shows many bacteria. No nitrogen. No blood. No leukocyte esterase. INR is 1. Chest x-ray, no acute disease. Angiography of the chest showed: 1. No evidence of PE. 2. COPD with bullous emphysema 3. Chronic interstitial changes 4. No infiltrates. 5. Several prominent non-specific mediastinal nodes IMPRESSION 1. COPD exacerbation 2. Chronic kidney disease 3. Diabetes 4. Asymptomatic bacteruria DISCUSSION The patient is admitted to Dr. Moctezuma's services. The patient meets inpatient criteria because of her COPD exacerbation and her hypoxia on admission. Without hospitalization, she would be at a high risk of respiratory failure. During her hospital stay, she will be placed on IV steroids, nebulizers and oxygen. DVT prophylaxis will be provided. We will resume her home medications as indicated. The patient monitored closely and discharged today on PO Predisone, O2 , Duonebs already set up at home. Discharge Planning Home with daughter to patient home. Discussed With: Nurse, Family (patient ), Other (Dr. Moctezuma, pt seen on his behalf.) Anita Lewis Sep 02, 2016 12:41
--- NOTE | 2016-09-02 19:10 | HHI.DS ---
Discharge Summary Admission Date Aug 31, 2016 at 23:53 Discharge Date: Sep 02, 2016 Admitting Diagnosis copd exacerbation, hypoxemia on RA Procedures Angiography Brief History HISTORY OF PRESENT ILLNESS This was a pleasant 76 year-old female with a known history of COPD. She does take inhalers and uses as needed oxygen at home for her history of COPD. she felt like she had become more short of breath over the last several days. She felt like she had a little bit of edema the day before admission in her right leg. The day of admission it seems like it was more in the left leg. She went to see Dr. Duncan today who was concerned. She came to the emergency room per his request. The patient stated she has not been coughing. She was not having any chest pain or chest pressure. She did have some shortness of breath with exertion. She was not complaining of shortness of breath at rest. She was not having fever, chills, nausea or vomiting. She was taking her medication as prescribed and she denied any other specific changes in her recent health. CBC/BMP: 08/31/16 1745 08/31/16 1745 Significant Findings Laboratory Tests Test 08/31/16 17:45 Activated Partial 24.0 SEC Thromboplast Time (24.3-30.1) Blood Urea Nitrogen 22 MG/DL (7-18) Creatinine 1.13 MG/DL (0.50-1.00) Estimat Glomerular Filtration 47 ML/MIN (>89) Rate Random Glucose 119 MG/DL (74-106) B-Type Natriuretic Peptide 190 PG/ML (0-100) Eosinophils (%) (Auto) 8.1 % (0.0-4.0) Eosinophils # (Auto) 0.6 TH/MM3 (0-0.4) Urine Bacteria MANY /hpf (NONE) Imaging Last Impressions Chest X-Ray 08/31/16 1704 Signed Impressions: Service Date/Time: Wednesday, August 31, 2016 17:21 - CONCLUSION: No acute disease. Anthony Lane MD CT Angiography 08/31/16 0000 Signed Impressions: Service Date/Time: Wednesday, August 31, 2016 22:49 - CONCLUSION: 1. No evidence of pulmonary embolism 2. 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 3. No acute pulmonary infiltrates 4. Several prominent nonspecific mediastinal lymph nodes. If clinically indicated, a PET/CT could be performed for further evaluation on a nonemergent outpatient basis.. Contreras Gorman MD PE at Discharge GENERAL: This was a 76 year-old female resting comfortably in bed in no acute distress. HEAD, EYES, EARS, NOSE, AND THROAT: Mucous membranes are moist. NECK: Supple. CARDIOVASCULAR: Regular rate and rhythm. No murmur , rub, gallop. RESPIRATORY: Breath sounds are diminished, few expiratory wheezes. GASTROINTESTINAL: Bowel sounds are present X 4 quads, No point tenderness, guarding or rebound. GENITOURINARY: No CVA tenderness. EXTREMITIES: No edema, except for trace lt. chronic MUSCULOSKELETAL: Tahir with purpose. NEUROLOGIC: Awake, alert and oriented. Speech was clear and fluent. Moving all extremities freely. Gait and station is not tested. Psy, mood /affect WNL. Objective Remarks Im ready to go home. Transfer Summary Home with daughter. Hospital Course Course of treatment INVESTIGATIONS CBC is normal. BUN is 22, creatinine is 1.13, GFR is estimated at 47, random glucose is 119, BNP is 190, troponin's normal. CPK normal. LFT's are normal. Urinalysis shows many bacteria. No nitrogen. No blood. No leukocyte esterase. INR is 1. Chest x-ray, no acute disease. On admission. Angiography of the chest showed: No evidence of PE. COPD with bullous emphysema Chronic interstitial changes No infiltrates. Several prominent non-specific mediastinal nodes. Diagnosis and plan included these things. 1. COPD exacerbation 2. Chronic kidney disease 3. Diabetes 4. Asymptomatic bacteruria The patient was admitted to Dr. Moctezuma's services. The patient met inpatient criteria because of her COPD exacerbation and her hypoxia on admission. Without hospitalization, she would be at a high risk of respiratory failure. During her hospital stay, she was placed on IV steroids, nebulizers and oxygen. DVT prophylaxis was provided. We resumed her home medications. Dictations were reconciled. Vital Signs were monitored every 4 hours. Patient exhibited good appetite with her meals. Labs were ordered and monitored for further needs. The patient was monitored closely and discharged today on PO Predisone, O2 , Duonebs already set up at home. Discharge Planning was initiated on admission. Plan was for patient to go Home with daughter. Pt Condition on Discharge: Stable Discharge Disposition: Discharge Home Discharge Instructions DIET: Follow Instructions for: As Tolerated, No Restrictions Fluid Restrictions: none Activities you can perform: Regular-No Restrictions Other Activity Instructions: frequent rest periods Follow up Referrals: PCP Follow-up - 1 Week Continued Medications: Albuterol 8.5 GM Inh (Proair Hfa 8.5 GM Inh) 90 Mcg/Act Aer 2 PUFF INH QID 108 mcg/actuation PRN SHORTNESS OF BREATH #1 Ref 0 INHALER Albuterol Neb (Albuterol Neb) 2.5 Mg/3 Ml Neb 2.5 MG NEB Q6HR NEB PRN SHORTNESS OF BREATH #60 Ref [address] (Aspir-81) 81 Mg Tabdr 81 MG PO DAILY Biotin (Biotin) 5 Mg Tab 5 MG PO DAILY #1 BOTTLE Cetirizine (Zyrtec Allergy) 10 Mg Tab 10 MG PO DAILY Allergies Ref 0 TAB Enalapril (Enalapril) 10 Mg Tab 10 MG PO BID #60 Ref 0 TAB Levothyroxine (Levothyroxine) 100 Mcg Tab 100 MCG PO DAILY Thyroid #30 Ref 0 TAB Metformin (Metformin) 850 Mg Tab 850 MG PO TIDPC With meals Blood Sugar Management Ref 0 TAB Oxycodone (Oxycodone) 15 Mg Tab 15 MG PO Q6H PRN PAIN Ref 0 TAB Rosuvastatin (Crestor) 10 Mg Tab 10 MG PO HS Cholesterol Management #30 Ref 0 TAB Tiotropium-Olodaterol Inh (Stiolto Respimat Inh) 2.5-2.5 Mcg/Act Aero 1 PUFF INH BID COPD #1 Ref 0 INHALER Anita Lewis Sep 02, 2016 19:10
== END 2016-09-02 14:12 | disposition home or self-care (01) | DRG 192 ==
LOC: NEPC 17:01 → NEDA 23:53 → NEDH 09-01 06:12 → HOCA 09-01 13:42
PROVIDERS: ADMIT Specialist; ATTEND Specialist
DX: J44.1 Chronic obstructive pulmonary disease with (acute) exacerbation (principal); R09.02 Hypoxemia; E11.22 Type 2 diabetes mellitus with diabetic chronic kidney disease; E11.40 Type 2 diabetes mellitus with diabetic neuropathy, unspecified; N18.9 Chronic kidney disease, unspecified; I12.9 Hypertensive chronic kidney disease with stage 1 through stage 4 chronic kidney disease, or unspecified chronic kidney disease; R82.99 Other abnormal findings in urine; E03.9 Hypothyroidism, unspecified; E78.00 Pure hypercholesterolemia, unspecified; K21.9 Gastro-esophageal reflux disease without esophagitis; Z87.891 Personal history of nicotine dependence; Z96.642 Presence of left artificial hip joint; Z96.653 Presence of artificial knee joint, bilateral; Z79.4 Long term (current) use of insulin; Z79.84 Long term (current) use of oral hypoglycemic drugs
CPT/HCPCS: 71010; 71275; 80053; 81001; 82550; 82552; 82948; 83880; 84484; 85025; 85610; 85730; 87077; 87086; 87186; 93005; 94640; 94664; 96374; J1650; J2930; Q9967

== ENCOUNTER → 2016-09-21 | Outpatient (CLI) | payer MEDICARE, OTHER ==
[~2016-09-21] MED LIST changes: +ALBU0.08 NEB; +ALBUAER3 INH; +ASPI81TA81 PO; +BIOT5TAB PO; +CEFT500T3 PO; -CYMB30CA PO; +ENAL10TA PO; -ENAL5TAB98 PO; -LEVO100T4 PO; +LEVO100T5 PO; +OXYC15TA PO; -OXYC15TA3 PO; -OXYC1SOL5 PO; +PRED10PA PO; -RIVA10 PO; +TIOT1AER INH; +ZYRT10TA PO
[2016-09-21 11:46] LABS: BLOOD GAS BASE EXCESS -2.1 mmol/L (-2-2); BLOOD GAS CARBOXYHEMOGLOBIN 1.6 % (0-4); BLOOD GAS HCO3 23 mmol/L (22-26); BLOOD GAS METHEMOGLOBIN 1.2 % (0-2); BLOOD GAS O2 HGB SATURATION 88 % (90-100); BLOOD GAS OXYGEN CONTENT 14.5 Vol % (12.0-20.0); BLOOD GAS PCO2 42 mmHg (38-42); BLOOD GAS PO2 66 mmHg (61-120); BLOOD GAS TOTAL HGB 11.7 G/DL (12.0-16.0); TEMP CORR TO 98.6
[2016-09-21 11:47] LABS: CRITICAL VALUE YES; DRAW SITE RT RADIAL; FIO2 21 %; NUMBER OF ARTERIAL PUNCTURES 1; STAT NO; ULNAR PULSE PRESENT
--- NOTE | 2016-09-24 09:25 | RSPPFT ---
DATE OF PROCEDURE: 09/21/16 COMMENTS: VOLUMES DYNAMIC: FVC mildly reduced; FEV1 normal. STATIC: TLC and VTG normal; RV mildly increased. FLOWS: FEV1% and FEF 25-75 normal. DIFFUSION: Mildly reduced. FLOW VOLUME LOOP: Mild restriction. IMPRESSION: Mild reduction in Forced vital capacity and a mild reduction in diffusion but no airways obstruction or improvement post-bronchodilator. Airways resistance is normal. Clinical correlation is required but it suggests possibly a mild restrictive defect possibly related to a BMI of 37.
== END ==
LOC: HRSP 10:35
PROVIDERS: ATTEND Internal Medicine
DX: J44.9 Chronic obstructive pulmonary disease, unspecified (principal)
CPT/HCPCS: 36600; 82805; 94060; 94620; 94726; 94729

== ENCOUNTER 2016-11-13 15:15 | Observation (INO) | payer MEDICARE, OTHER ==
[~2016-11-13] VITALS: Ht 157.5 cm; Wt 88.6 kg
[2016-11-13] VITALS (9 sets, daily range): BP systolic 145–197; BP diastolic 65–88; PULSE 71–94; RESP 16–20; TEMP 98.2–98.7; O2SAT 95–100
[~2016-11-13 15:15] MED LIST changes: -CEFT500T3 PO; -PRED10PA PO
[2016-11-13] MEDS ORDERED: methylPREDNISolone SOD SUCC 125 MG/2 ML VIAL IVP ONE (15:45)
[2016-11-13] MEDS ORDERED: RESP: ALBUTEROL 2.5 MG/3 ML NEB (SCH) INH ONE (15:45)
[2016-11-13] MEDS ORDERED: SODIUM CHLORIDE 0.9% FLUSH 10 ML FLUSH IVF PRN (15:45)
--- NOTE | 2016-11-13 15:51 | PD ---
HPI Chief Complaint: Respiratory Distress Time Seen by Provider: 15:30 Travel History International Travel<30 days: No Contact w/Intl Traveler<30days: No Traveled to known affect area: No History of Present Illness HPI This is a 68-year-old female history of COPD, coronary artery disease, hypertension, diabetes mellitus who presents today with complaints of shortness of breath. Patient states that she was seen by her nutrition program instructor, Dr. triplett who recommended she increase her oxygen to 24 hours a day. The patient states that despite doing this, she still has continued shortness of breath. She reports she last used her nebulizer yesterday. She did not use it today. She is not currently taking steroids. She denies any chest pain, chest pressure. She does report she has a dry cough but equates that to her continuous oxygen usage. PFSH Past Medical History Arthritis: Yes Asthma: No Autoimmune Disease: No Blood Disorders: No Anxiety: No Depression: No Heart Rhythm Problems: No Cancer: No Cardiovascular Problems: Yes High Cholesterol: Yes Chemotherapy: No Chest Pain: No Congestive Heart Failure: No COPD: No Cerebrovascular Accident: No Diabetes: Yes Diminished Hearing: No Endocrine: Yes Gastrointestinal Disorders: Yes GERD: Yes (GERD) Glaucoma: No Genitourinary: No Headaches: No Hepatitis: No Hiatal Hernia: No Hypertension: Yes Immune Disorder: No Implanted Vascular Access Dvce: Yes Kidney Stones: No Musculoskeletal: Yes Neurologic: Yes (NEUROPATHY R/T DM) Psychiatric: No Reproductive: No Respiratory: Yes Migraines: No Myocardial Infarction: No Radiation Therapy: No Renal Failure: No Seizures: No Sickle Cell Disease: No Sleep Apnea: No Thyroid Disease: Yes (HYPOTHYROID) Ulcer: No Menopausal: Yes Tubal Ligation: Yes Past Surgical History Abdominal Surgery: No AICD: No Appendectomy: No Arteriovenous Shunt: No Body Medical Devices: LUMBAR HARDWARE Cardiac Surgery: No Cholecystectomy: No Ear Surgery: No Endocrine Surgery: No Eye Surgery: Yes (BILATERAL CATARACT REMOVAL) Genitourinary Surgery: No Gynecologic Surgery: Yes (TUBAL LIGATION) Insulin Pump: No Joint Replacement: Yes (BOTH KNEE, LEFT HIP) Neurologic Surgery: Yes (LUMBAR FUSION) Oral Surgery: Yes (TONSILLECTOMY) Pacemaker: No Thoracic Surgery: No Tonsillectomy: Yes Other Surgery: Yes (spinal fusion L4-L5) Social History Alcohol Use: No Tobacco Use: No Substance Use: No Allergies-Medications (Allergen,Severity, Reaction): Coded Allergies: Ciprofloxacin (Unverified Allergy, Severe, RASH, ITCH, 08/31/16) Reported Meds & Prescriptions Reported Meds & Active Scripts Active Reported Oxycodone (Oxycodone HCl) 15 Mg Tab 15 Mg PO Q6H PRN Crestor (Rosuvastatin Calcium) 10 Mg Tab 10 Mg PO HS Metformin (Metformin HCl) 850 Mg Tab 850 Mg PO TIDPC With meals Biotin 5 Mg Tab 5 Mg PO BID Levothyroxine (Levothyroxine Sodium) 100 Mcg Tab 100 Mcg PO DAILY Aspir-81 (Aspirin) 81 Mg Tabdr 81 Mg PO DAILY Albuterol Neb (Albuterol Sulfate) 2.5 Mg/3 Ml Neb 2.5 Mg NEB Q6HR NEB PRN Zyrtec Allergy (Cetirizine HCl) 10 Mg Tab 10 Mg PO DAILY Enalapril (Enalapril Maleate) 10 Mg Tab 10 Mg PO BID Proair Hfa 8.5 GM Inh (Albuterol Sulfate) 90 Mcg/Act Aer 2 Puff INH QID PRN 108 mcg/actuation Stiolto Respimat Inh (Tiotropium-Olodaterol Inh) 2.5-2.5 Mcg/Act Aero 1 Puff INH BID Review of Systems Except as stated in HPI: all other systems reviewed are Neg General / Constitutional: No: Fever, Chills HENT: No: Headaches, Lightheadedness Cardiovascular: No: Chest Pain or Discomfort, Palpitations Respiratory: Positive: Cough (dry), Shortness of Breath, Wheezing Gastrointestinal: No: Nausea, Vomiting Genitourinary: No: Frequency, Dysuria Musculoskeletal: No: Weakness, Pain Neurologic: No: Weakness, Dizziness, Syncope, Focal Abnormalities, Headache Physical Exam Narrative GENERAL: Well developed well-nourished female in mild respiratory discomfort. SKIN: Focused skin assessment warm/dry. HEAD: Atraumatic. Normocephalic. EYES: No scleral icterus. No injection or drainage. ENT: N Mucous membranes pink and moist. NECK: Trachea midline. No JVD. Supple CARDIOVASCULAR: Regular rate and rhythm. No murmur appreciated. RESPIRATORY: Decreased breath sounds at the bilateral bases. There was mild wheezing in the mid lung lui bilaterally. GASTROINTESTINAL: Abdomen soft, non-tender, nondistended. MUSCULOSKELETAL: No obvious deformities. No edema. NEUROLOGICAL: Awake and alert. No obvious cranial nerve deficits. Motor grossly within normal limits. Normal speech. PSYCHIATRIC: Appropriate mood and affect; insight and judgment normal. Data Data Last Documented VS Vital Signs Date Time Temp Pulse Resp B/P Pulse Ox O2 Delivery O2 Flow Rate FiO2 11/13/16 17:29 94 173/74 99 Nasal Cannula 2 11/13/16 15:58 18 11/13/16 15:28 98.7 Orders Complete Blood Count With Diff (11/13/16 15:39) Comprehensive Metabolic Panel (11/13/16 15:39) Ckmb (Isoenzyme) Profile (11/13/16 15:39) Troponin I (11/13/16 15:39) Iv Access Insert/Monitor (11/13/16 15:39) Ecg Monitoring (11/13/16 15:39) Oximetry (11/13/16 15:39) Oxygen Administration (11/13/16 15:39) Chest, Single Ap (11/13/16 15:39) Sodium Chloride 0.9% Flush (Ns Flush) (11/13/16 15:45) Methylprednisolone So Succ Inj (Solumedr (11/13/16 15:45) Albuterol-Ipratropium Neb (Duoneb Neb) (11/13/16 15:45) Albuterol Neb (Albuterol Neb) (11/13/16 15:45) Arterial Blood Gas (Abg) (11/13/16 15:42) CKMB (11/13/16 15:50) CKMB% (11/13/16 15:50) Diet 1800 Ada Cons Carb (11/13/16 Dinner) Admit Order (Ed Use Only) (11/13/16 18:36) Labs Laboratory Tests Test 11/13/16 11/13/16 15:50 16:10 White Blood Count 9.8 TH/MM3 Red Blood Count 4.29 MIL/MM3 Hemoglobin 12.1 GM/DL Hematocrit 38.0 % Mean Corpuscular Volume 88.4 FL Mean Corpuscular Hemoglobin 28.3 PG Mean Corpuscular Hemoglobin 32.0 % Concent Red Cell Distribution Width 13.6 % Platelet Count 208 TH/MM3 Mean Platelet Volume 7.9 FL Neutrophils (%) (Auto) 61.6 % Lymphocytes (%) (Auto) 25.6 % Monocytes (%) (Auto) 6.3 % Eosinophils (%) (Auto) 6.0 % Basophils (%) (Auto) 0.5 % Neutrophils # (Auto) 6.0 TH/MM3 Lymphocytes # (Auto) 2.5 TH/MM3 Monocytes # (Auto) 0.6 TH/MM3 Eosinophils # (Auto) 0.6 TH/MM3 Basophils # (Auto) 0.0 TH/MM3 CBC Comment DIFF FINAL Differential Comment Sodium Level 142 MEQ/L Potassium Level 4.8 MEQ/L Chloride Level 108 MEQ/L Carbon Dioxide Level 27.3 MEQ/L Anion Gap 7 MEQ/L Blood Urea Nitrogen 21 MG/DL Creatinine 1.03 MG/DL Estimat Glomerular Filtration 52 ML/MIN Rate Random Glucose 117 MG/DL Calcium Level 9.6 MG/DL Total Bilirubin 0.3 MG/DL Aspartate Amino Transf 19 U/L (AST/SGOT) Alanine Aminotransferase 20 U/L (ALT/SGPT) Alkaline Phosphatase 71 U/L Total Creatine Kinase 177 U/L Creatine Kinase MB 4.1 NG/ML Troponin I LESS THAN 0.02 NG/ML Total Protein 7.8 GM/DL Albumin 4.0 GM/DL Blood Gas Puncture Site RT RADIAL Blood Gas Patient Temperature 98.6 Blood Gas HCO3 24 mmol/L Blood Gas Base Excess 0.3 mmol/L Blood Gas Oxygen Saturation 98 % Arterial Blood pH 7.43 Arterial Blood Partial 37 mmHg Pressure CO2 Arterial Blood Partial 140 mmHG Pressure O2 Arterial Blood Oxygen Content 15.7 Vol % Arterial Blood 0.9 % Carboxyhemoglobin Arterial Blood Methemoglobin 0.5 % Blood Gas Hemoglobin 11.3 G/DL Oxygen Delivery Device NASAL CANNULA Blood Gas Liter Flow 2 L/M MDM Medical Decision Making Medical Screen Exam Complete: Yes Emergency Medical Condition: Yes Differential Diagnosis COPD exacerbation versus pneumonia versus ACS Narrative Course 76-year-old female with a history of COPD, hypertension, presents today with complaints of shortness of breath. The patient was recently seen by her nutrition program instructor and had her oxygen changed from nighttime to 24 hours. She reports shortness of breath and wheezing. The patient denies any fevers, chills. She denies any chest pain, chest pressure. She's been given Solu- Medrol 125 mg IVP. She's also been given 3 nebulizer treatments the first as a do not have followed by 2 albuterol nebulizers. On reevaluation at 6:10 PM, the patient states she felt better however she was still having some shortness of breath. We did get her up and walk her and she became winded shortly. Given this, I feel she would benefit from a 23 hour observation with continued Solu-Medrol and nebulizer treatments. There is a call out to the [facility] for placement on observation area Diagnosis Primary Impression: COPD exacerbation Additional Impressions: Diabetes 1.5, managed as type 2 Hypertension Hyperlipidemia Deshawn Quiros MD Nov 13, 2016 15:51
[2016-11-13] MEDS: RESP: ALBUTEROL 2.5 MG/IPRATROPIUM 0.5 MG NEB (SCH) INH ×2 (16:01→16:02)
[2016-11-13 16:08] LABS: BASOPHIL % 0.5 % (0.0-2.0); EOSINOPHIL # 0.6 TH/MM3 (0-0.4); HEMO FLAGS DIFF FINAL; LYMPH % 25.6 % (9.0-44.0); LYMPHOCYTE # 2.5 TH/MM3 (1.0-4.8); MEAN CELL VOLUME 88.4 FL (80.0-100.0); MEAN CORPUSCULAR HEMOGLOBIN 28.3 PG (27.0-34.0); MONO % 6.3 % (0.0-8.0); NEUT % 61.6 % (16.0-70.0); PLATELET COUNT 208 TH/MM3 (150-450); RED BLOOD COUNT 4.29 MIL/MM3 (4.00-5.30); RED CELL DISTRIBUTION WIDTH 13.6 % (11.6-17.2); WHITE BLOOD COUNT 9.8 TH/MM3 (4.0-11.0)
[2016-11-13 16:20] LABS: BLOOD GAS BASE EXCESS 0.3 mmol/L (-2-2); BLOOD GAS CARBOXYHEMOGLOBIN 0.9 % (0-4); BLOOD GAS HCO3 24 mmol/L (22-26); BLOOD GAS METHEMOGLOBIN 0.5 % (0-2); BLOOD GAS O2 HGB SATURATION 98 % (90-100); BLOOD GAS OXYGEN CONTENT 15.7 Vol % (12.0-20.0); BLOOD GAS PCO2 37 mmHg (38-42); BLOOD GAS PO2 140 mmHG (61-120); BLOOD GAS TOTAL HGB 11.3 G/DL (12.0-16.0); CRITICAL VALUE NO; DRAW SITE RT RADIAL; LITER FLOW 2 L/M; NUMBER OF ARTERIAL PUNCTURES 1; OXYGEN DEVICE NASAL CANNULA; STAT YES; TEMP CORR TO 98.6; ULNAR PULSE PRESENT
--- NOTE | 2016-11-13 16:26 | RADRPT ---
EXAM DATE/TIME: 11/13/2016 15:56 [facility] COMPARISON: CHEST SINGLE AP, August 31, 2016, 17:21. INDICATIONS : Short of breath. MEDICAL HISTORY : Chronic obstructive pulmonary disease. SURGICAL HISTORY : None. ENCOUNTER: Initial ACUITY: 1 week PAIN SCORE: 0/10 LOCATION: Bilateral chest FINDINGS: A single view of the chest demonstrates the lungs to be symmetrically aerated with some increase inte rstitial markings in the apices possibly representing some degree of fibrosis. Atelectatic changes ar e identified above the left hemidiaphragm. Heart size is borderline prominent but well compensated. D egenerative changes in both shoulders and the dorsal spine. Osseous structures are otherwise intact. CONCLUSION: 1. Prominent interstitial markings in the apices may represent some degree of fibrosis/emphysema, rig ht greater than left. 2. Atelectatic changes above the left hemidiaphragm. 3. Borderline prominent but well compensated heart. 4. No confluent infiltrate. Landon Smith MD on November 13, 2016 at 16:22 Board Certified Radiologist. This report was verified electronically.
[2016-11-13 16:57] LABS: ALT (GPT) 20 U/L (10-53); ANION GAP 7 MEQ/L (5-15); AST (GOT) 19 U/L (15-37); BICARBONATE 27.3 MEQ/L (21.0-32.0); BLOOD UREA NITROGEN 21 MG/DL (7-18); CHLORIDE 108 MEQ/L (98-107); GLOMERULAR FILTRATION RATE 52 ML/MIN (>89); POTASSIUM 4.8 MEQ/L (3.5-5.1); SODIUM (NA) 142 MEQ/L (136-145)
[2016-11-13 17:01] LABS: ALKALINE PHOSPHATASE 71 U/L (45-117); CREATINE KINASE 177 U/L (26-192); TOTAL BILIRUBIN ADULT 0.3 MG/DL (0.2-1.0)
[2016-11-13 17:13] LABS: CKMB 4.1 NG/ML (0.5-3.6)
[2016-11-13] MEDS ORDERED: ONDANSETRON HCL 4 MG/2 ML VIAL IVP PRN (19:45)
[2016-11-13] MEDS ORDERED: SODIUM CHLORIDE 0.9% FLUSH 10 ML FLUSH IV FLUSH PRN (19:45)
[2016-11-13] MEDS ORDERED: NALOXONE HCL 0.4 MG/ML AMP IV PRN (19:45)
[2016-11-13] MEDS ORDERED: ACETAMINOPHEN 325 MG TAB PO PRN (19:45)
[2016-11-13] MEDS: AZITHROMYCIN INJ 500 MG in SODIUM CHLOR 0.9% 250 ML INJ 250 ML IV SCH (20:04)
[2016-11-13] MEDS: RESP: ALBUTEROL 2.5 MG/IPRATROPIUM 0.5 MG NEB (SCH) NEB (20:09)
[2016-11-13] MEDS ORDERED: RESP: ALBUTEROL 2.5 MG/IPRATROPIUM 0.5 MG NEB (PRN) NEB (21:00)
[2016-11-13] MEDS: cefTRIAXone INJ 1,000 MG in SODIUM CHLORIDE 0.9% INJ 100 ML IV SCH (21:20)
[2016-11-13] MEDS: SODIUM CHLORIDE 0.9% FLUSH 10 ML FLUSH IV FLUSH SCH (21:22)
[2016-11-13] MEDS: HEPARIN SODIUM - SQ 10,000 UNITS/ML VIAL SQ SCH (22:16)
[2016-11-13] MEDS: methylPREDNISolone SOD SUCC 40 MG/1 ML VIAL IV PUSH SCH (23:59)
[2016-11-14] VITALS (7 sets, daily range): BP systolic 132–180; BP diastolic 60–79; PULSE 68–86; RESP 18–20; TEMP 98–98.6; O2SAT 94–99
[2016-11-14] MEDS: methylPREDNISolone SOD SUCC 40 MG/1 ML VIAL IV PUSH SCH ×2 (05:31→17:57)
[2016-11-14] MEDS: HEPARIN SODIUM - SQ 10,000 UNITS/ML VIAL SQ SCH ×3 (05:31→22:11)
[2016-11-14 05:41] LABS: AUTOMATED NEUTROPHIL # 4.8 TH/MM3 (1.8-7.7); BASOPHIL % 0.2 % (0.0-2.0); HEMATOCRIT 35.2 % (35.0-46.0); HEMO FLAGS DIFF FINAL; LYMPH % 12.9 % (9.0-44.0); LYMPHOCYTE # 0.7 TH/MM3 (1.0-4.8); MEAN CELL VOLUME 87.8 FL (80.0-100.0); MEAN CORPUSCULAR HEMOGLOBIN 28.8 PG (27.0-34.0); MEAN CORPUSCULAR HGB CONC 32.8 % (32.0-36.0); MONO % 1.5 % (0.0-8.0); NEUT % 85.4 % (16.0-70.0); PLATELET COUNT 190 TH/MM3 (150-450); RED BLOOD COUNT 4.01 MIL/MM3 (4.00-5.30); RED CELL DISTRIBUTION WIDTH 13.8 % (11.6-17.2); WHITE BLOOD COUNT 5.6 TH/MM3 (4.0-11.0)
[2016-11-14 06:21] LABS: BICARBONATE 23.7 MEQ/L (21.0-32.0); POTASSIUM 4.7 MEQ/L (3.5-5.1)
[2016-11-14] MEDS: RESP: ALBUTEROL 2.5 MG/IPRATROPIUM 0.5 MG NEB (SCH) NEB ×3 (07:13→22:24)
--- NOTE | 2016-11-14 09:27 | MH ---
cc: ANTONIO WILSON DATE OF ADMISSION: 11/13/2016 DATE OF : 1940 REASON FOR ADMISSION/CHIEF COMPLAINT: Respiratory distress and shortness of breath. No travel in the last 30 days. HISTORY OF PRESENT ILLNESS: This is a pleasant 68 year old white female with significant history and recent hospitalizations with chronic obstructive pulmonary disease. She has bouts of shortness of breath, also known through her usual routine day. The patient states that the shortness of breath has gotten worse recently and she is also complaining of acute on chronic nasal congestion. The patient was using a Afrin type medication but was warned not to use that due to addictive properties. She is now using an ocean spray or sterile water for her nasal congestion. Currently she states that the left side is open, the right side is still closed this a.m. The patient is on continuous oxygen at 2 liters. She denies any chest pain, no nausea, no vomiting, no diarrhea, no constipation. She denies any headaches and states that she has been taking her usual medications in the addition of nasal spray. She has a nebulizer at home but currently does not have 24 hour a day o2 at home. PAST MEDICAL HISTORY: 1. Per the record and information from the patient. 2. Arthritis. 3. Cardiovascular problems. The patient had abnormalities with an electrocardiogram and PET scan recently and has an appointment December 04 to see a brush maker at [facility]. 4. Hyperlipidemia. 5. Gastroesophageal reflux disease. 6. Hypertension. 7. Neuropathy secondary to diabetes. 8. Diabetes mellitus type 2. 9. Hypothyroidism. 10. Chronic obstructive pulmonary disease. PAST SURGICAL HISTORY: 1. Lumbar surgery with hardware 2. Bilateral cataracts 3. Tubal ligation. 4. Joint replacements in left hip and both knees. 5. Tonsillectomy. ALLERGIES CIPRO MEDICATIONS: 1. Oxycodone 2. Crestor 3. Metformin 4. Biotin 5. Levothyroxine 6. Aspirin 7. Albuterol 8. Nebulizers 9. Zyrtec 10. Enalapril 11. Provir 12. Stiolto Respimat inhaler. SOCIAL HISTORY: No alcohol, tobacco or illicit drugs. PHYSICAL EXAMINATION: VITAL SIGNS: Temperature 98.1, pulse 68, respirations 20, blood pressure 137/67. O2 saturations 94. Two liters nasal cannula. IN GENERAL: Well-developed, well-nourished, mildly obese, white female, looks to be her stated age resting in the bed. She is alert and oriented and fair historian. SKIN: The skin is slightly pale, warm and dry. Thin turgor. HEAD, EYES, EARS, NOSE, AND THROAT: Atraumatic, normocephalic, Pupils equal, round, reactive to light and accommodation. Moist mucous membranes pink and moist. Trachea is midline. NECK: Supple. CARDIOVASCULAR SYSTEM: S1, S2, regular rate and rhythm, no murmurs, rubs or gallops audible. She has no edema and her pulses are intact. RESPIRATORY: Generalized decreased breath sounds in her mid to lower bases. Mild expiratory wheezing noted, right greater than left. Anterior lung sounds essentially clear. ABDOMEN: The abdomen is round, soft, nontender, nondistended. Active bowel sounds in all four quadrants. MUSCULOSKELETAL: She has equal surface boss, no edema. NEUROLOGIC: Awake, alert, speech is clear. Fair historian. PSYCHIATRIC: Insight normal, appropriate mood. DIAGNOSTIC DATA: White blood count 5.6. Red blood cells 4.01, hemoglobin 11.6, hematocrit 35.2, abnormal noted neutrophil auto percentage 85.4. Lymphocyte auto 0.7. Chemistries; sodium 140, potassium 4.7, chloride 107, carbon dioxide 23.7. Amnion gap 9. Blood urea nitrogen 19, creatinine 0.95. Glomerular filtration rate 57, glucose 230, calcium 9.4. First troponin on admission is less then 0.02, CK MB is 4.1. Albumin 4, Total protein 7.8. IMAGING STUDIES: Shows chest x-ray to have prominent interstitial markings in the Apices possible fibrosis and emphysema right greater then the left. Atelectatic changes in the left hemidiaphragm, prominent well compensated heart. No fluid if infiltrates. ASSESSMENT AND PLAN: 1. Chronic obstructive pulmonary disease exacerbation. 2. Hypertension. 3. Diabetes mellitus type 2 uncontrolled. 4. History of osteoarthritis with special attention to the left knee. 5. History of hyperlipidemia. 6. History of possible cardiovascular disorder. PLAN: Monitor her vital signs q four and more often if warranted. In the emergency room the patient received intravenous steroids as well as nebulizer treatments. O2 and electrocardiogram monitoring. The patient will be placed on an heart healthy 1800 calorie ADA diet. She will receive accuchecks ac and hs with sliding scale. Deep venous thrombosis prophylaxis with heparin subcutaneously. The patient is on IV antibiotics of Rocephin and azithromycin IV, pain management. We will add peptic ulcer disease prophylaxis with Pepcid. The plan is to monitor the patient for any signs of infection. To keep her on telemetry to monitor for any cardiac dysrhythmias, as noted the patient has an appointment to see cardiology at the [facility] on December 04 for any further evaluations per her PCP. The patient will receive Duoneb around the clock. The patient is full code, full aggressive care. We will follow. Sultana Wilson MD DICTATED BY: KIKI Guerra /8:33 AM 8:51 AM
[2016-11-14] MEDS: FAMOTIDINE 20 MG TAB PO SCH ×2 (09:54→20:47)
[2016-11-14] MEDS: SODIUM CHLORIDE 0.9% FLUSH 10 ML FLUSH IV FLUSH SCH ×2 (09:55→20:37)
--- NOTE | 2016-11-14 11:03 | HHI.HP ---
[facility] Primary Care Physician Raman Duncan MD Admission Diagnosis COPD exacerbation Diagnoses: Travel History International Travel<30 Days: No Contact w/Intl Traveler <30 Da: No Traveled to Known Affected Are: No Past Family Social History Allergies: Coded Allergies: Ciprofloxacin (Unverified Allergy, Severe, RASH, ITCH, 08/31/16) Physical Exam Vital Signs Vital Signs Date Time Temp Pulse Resp B/P Pulse Ox O2 Delivery O2 Flow Rate FiO2 11/14/16 09:07 98.6 86 18 180/79 96 11/14/16 07:13 94 Nasal Cannula 2.00 11/14/16 06:07 98.1 68 20 137/67 96 11/13/16 23:01 98.2 77 20 145/65 95 11/13/16 21:54 90 16 166/70 98 Room Air 11/13/16 20:50 89 16 162/68 97 Room Air 11/13/16 20:10 98 Nasal Cannula 2.00 11/13/16 19:55 92 18 178/76 96 Nasal Cannula 2 11/13/16 17:29 94 173/74 99 Nasal Cannula 2 11/13/16 16:04 100 Nasal Cannula 2.00 11/13/16 15:58 65 100 Nasal Cannula 2 11/13/16 15:58 100 Nasal Cannula 2 11/13/16 15:58 71 18 180/84 100 2 11/13/16 15:28 98.7 74 16 197/88 100 Physical Exam GENERAL: This is a well-nourished, well-developed patient, in no apparent distress. SKIN: No rashes, ecchymoses or lesions. Cool and dry. HEAD: Atraumatic. Normocephalic. No temporal or scalp tenderness. EYES: Pupils equal round and reactive. Extraocular motions intact. No scleral icterus. No injection or drainage. ENT: Nose without bleeding, purulent drainage or septal hematoma. Throat without erythema, tonsillar hypertrophy or exudate. Uvula midline. Airway patent. NECK: Trachea midline. No JVD or lymphadenopathy. Supple, nontender, no meningeal signs. CARDIOVASCULAR: Regular rate and rhythm without murmurs, gallops, or rubs. RESPIRATORY: Clear to auscultation. Breath sounds equal bilaterally. No wheezes , rales, or rhonchi. GASTROINTESTINAL: Abdomen soft, non-tender, nondistended. No hepato-splenomegaly , or palpable masses. No guarding. MUSCULOSKELETAL: Extremities without clubbing, cyanosis, or edema. No joint tenderness, effusion, or edema noted. No calf tenderness. Negative Homans sign bilaterally. NEUROLOGICAL: Awake and alert. Cranial nerves II through XII intact. Motor and sensory grossly within normal limits. Five out of 5 muscle strength in all muscle groups. Normal speech. Laboratory Laboratory Tests Test 11/13/16 11/13/16 11/14/16 15:50 16:10 04:00 White Blood Count 9.8 5.6 Red Blood Count 4.29 4.01 Hemoglobin 12.1 11.6 Hematocrit 38.0 35.2 Mean Corpuscular Volume 88.4 87.8 Mean Corpuscular Hemoglobin 28.3 28.8 Mean Corpuscular Hemoglobin 32.0 32.8 Concent Red Cell Distribution Width 13.6 13.8 Platelet Count 208 190 Mean Platelet Volume 7.9 8.5 Neutrophils (%) (Auto) 61.6 85.4 Lymphocytes (%) (Auto) 25.6 12.9 Monocytes (%) (Auto) 6.3 1.5 Eosinophils (%) (Auto) 6.0 0.0 Basophils (%) (Auto) 0.5 0.2 Neutrophils # (Auto) 6.0 4.8 Lymphocytes # (Auto) 2.5 0.7 Monocytes # (Auto) 0.6 0.1 Eosinophils # (Auto) 0.6 0.0 Basophils # (Auto) 0.0 0.0 CBC Comment DIFF FINAL DIFF FINAL Differential Comment Sodium Level 142 140 Potassium Level 4.8 4.7 Chloride Level 108 107 Carbon Dioxide Level 27.3 23.7 Anion Gap 7 9 Blood Urea Nitrogen 21 19 Creatinine 1.03 0.95 Estimat Glomerular Filtration 52 57 Rate Random Glucose 117 230 Calcium Level 9.6 9.4 Total Bilirubin 0.3 Aspartate Amino Transf 19 (AST/SGOT) Alanine Aminotransferase 20 (ALT/SGPT) Alkaline Phosphatase 71 Total Creatine Kinase 177 Creatine Kinase MB 4.1 Troponin I LESS THAN 0.02 Total Protein 7.8 Albumin 4.0 Blood Gas Puncture Site RT RADIAL Blood Gas Patient Temperature 98.6 Blood Gas HCO3 24 Blood Gas Base Excess 0.3 Blood Gas Oxygen Saturation 98 Arterial Blood pH 7.43 Arterial Blood Partial 37 Pressure CO2 Arterial Blood Partial 140 Pressure O2 Arterial Blood Oxygen Content 15.7 Arterial Blood 0.9 Carboxyhemoglobin Arterial Blood Methemoglobin 0.5 Blood Gas Hemoglobin 11.3 Oxygen Delivery Device NASAL CANNULA Blood Gas Liter Flow 2 Result Diagram: 11/14/1639911/14/16399 Assessment and Plan Assessment and Plan Patient seen and examined Please refer to admission H & P for details COPD exacerbation on home Oxygen feeling better wean solumedrol continue antibiotics and duonebs accuchecks diabetic diet BP high, home meds resumed discussed with patient discussed with Anita SWANSON anticipate discharge to home in Sutlana Sauer MD Nov 14, 2016 11:03
[2016-11-14] MEDS: ENALAPRIL MALEATE 10 MG TAB PO SCH ×2 (11:16→20:47)
[2016-11-14] MEDS: ASPIRIN EC 81 MG TABEC PO SCH (11:16)
[2016-11-14] MEDS: metFORMIN HCL 850 MG TAB PO SCH ×2 (14:08→18:00)
[2016-11-14] MEDS: AZITHROMYCIN INJ 500 MG in SODIUM CHLOR 0.9% 250 ML INJ 250 ML IV SCH (20:37)
[2016-11-14] MEDS ORDERED: ATORVASTATIN 20 MG TAB PO SCH (21:00)
[2016-11-14] MEDS ORDERED: NON-FORMULARY DRUG (Biotin 5 MG) PO SCH (21:00)
[2016-11-14] MEDS ORDERED: PT:STIOLTO RESPIMAT PO SCH (21:00)
[2016-11-14] MEDS ORDERED: TIOTROPIUM OLODATEROL INH SCH ×2 (21:00)
[2016-11-14] MEDS: cefTRIAXone INJ 1,000 MG in SODIUM CHLORIDE 0.9% INJ 100 ML IV SCH (22:11)
[2016-11-15] VITALS (7 sets, daily range): BP systolic 140–194; BP diastolic 65–88; PULSE 67–80; RESP 18–20; TEMP 97.8–98; O2SAT 73–98
[2016-11-15] MEDS: methylPREDNISolone SOD SUCC 40 MG/1 ML VIAL IV PUSH SCH (05:50)
[2016-11-15] MEDS: HEPARIN SODIUM - SQ 10,000 UNITS/ML VIAL SQ SCH (05:50)
[2016-11-15] MEDS ORDERED: LEVOTHYROXINE SODIUM 100 MCG TAB PO SCH (06:00)
[2016-11-15] MEDS: RESP: ALBUTEROL 2.5 MG/IPRATROPIUM 0.5 MG NEB (SCH) NEB ×2 (07:26→13:49)
--- NOTE | 2016-11-15 08:42 | HHI.PR ---
Subjective Remarks Resting in bed Awakens easily No shortness of breath at rest Patient states feels better this a.m. Afebrile Objective Objective Results - Vital Signs Date Time Temp Pulse Resp B/P Pulse Ox O2 Delivery O2 Flow Rate FiO2 11/15/16 07:27 98 Nasal Cannula 2.00 11/15/16 04:40 97.8 73 19 154/88 73 11/15/16 01:39 68 11/15/16 00:00 98.0 80 19 140/65 96 11/14/16 22:28 99 Nasal Cannula 2.00 11/14/16 19:50 98.0 74 18 149/66 95 11/14/16 16:37 83 18 132/60 95 11/14/16 11:58 80 20 140/76 95 11/14/16 09:07 98.6 86 18 180/79 96 Result Diagram: 11/14/160 11/14/16 0400 ROS General: Fatigue (easily but feels better this morning), Other (10 point ROS done currently systems are unremarkable) Pulmonary: SOB (none at rest) Physical Exam Physical Exam PHYSICAL EXAMINATION GENERAL: This is a well-developed, female who appears to be in no acute distress at rest. She is alert and awake, good historian HEAD: Normocephalic without any lesion or mass noted. Facial features appear symmetric. OROPHARYNGEAL: Oropharynx without erythema or edema. NECK: Supple. No nuchal rigidity or lymphadenopathy. Trachea midline without deviation. CARDIAC: Regular rhythm, regular rate, S1 and S2 are heard. Murmur none no gallops or rubs. LUNGS: Few coarse crackles to auscultation right lower lung . No wheeze, no rhonchi or no rale. No use of accessory muscles on inspiration or expiration at rest ABDOMEN: Soft, nontender, no organomegaly or masses. Bowel sounds are heard in all four quadrants. No rebound. No guarding. EXTREMITIES: No edema. Pulses equal bilateral. NEUROLOGICAL: Patient mood and affect appropriate. No focal deficit SKIN:Warm and moist Objective Remarks I feel better today A/P Assessment and Plan 1. Chronic obstructive pulmonary disease exacerbation. 2. Hypertension. 3. Diabetes mellitus type 2 uncontrolled. 4. History of osteoarthritis with special attention to the left knee. 5. History of hyperlipidemia. 6. History of possible cardiovascular disorder. PLAN: Vital signs reviewed patient is afebrile, other normal range for her Patient using O2 at 2 L, dual nebs, no acute shortness of breath noted at rest. Patient states she feels better Discharge planning possible today, patient does have O2 at home and to support his system to assist her. Son lives across the street. COPD exacerbation, stabilizing with duo nebs, medications, telemetry monitoring , labs Appetite good no nausea vomiting IV antibiotic therapy Diabetes mellitus, Accu-Cheks and sliding-scale trends, in no acute issues noted History of osteoarthritis, adequate management no acute issues Discussed With: Nurse, Family, Other (Dr. Simmons, seen on her behalf) Anita Lewis Nov 15, 2016 08:41
[2016-11-15] MEDS ORDERED: CETIRIZINE HCL 10 MG TAB PO SCH (09:00)
[2016-11-15] MEDS: ASPIRIN EC 81 MG TABEC PO SCH (11:05)
[2016-11-15] MEDS: FAMOTIDINE 20 MG TAB PO SCH (11:05)
[2016-11-15] MEDS: metFORMIN HCL 850 MG TAB PO SCH (11:05)
[2016-11-15] MEDS: ENALAPRIL MALEATE 10 MG TAB PO SCH (11:05)
[2016-11-15] MEDS: SODIUM CHLORIDE 0.9% FLUSH 10 ML FLUSH IV FLUSH SCH (11:06)
[2016-11-15] MEDS ORDERED: PRED10PA PO (12:29)
[2016-11-15] MEDS ORDERED: CEFT500T3 PO (12:29)
[2016-11-15 12:30] LABS: C. DIFF EPI 027 PRESUMPTIVE NEGATIVE (NEGATIVE); C. DIFF TOXIN PCR NEGATIVE (NEGATIVE)
--- NOTE | 2016-11-15 17:42 | HHI.DS ---
Discharge Summary Admission Date Nov 13, 2016 at 18:38 Discharge Date: Nov 15, 2016 Admitting Diagnosis COPD exacerbation Brief History This was a pleasant 68 year old white female with significant history and recent hospitalizations with chronic obstructive pulmonary disease. She had bouts of shortness of breath, also known through her usual routine day. The patient stated that the shortness of breath had gotten worse recently and she was also complaining of acute on chronic nasal congestion. The patient was using a Afrin type medication but was warned not to use that due to addictive properties. She now uses an ocean spray or sterile water for her nasal congestion. Currently she stated that the left side is open, the right side is still closed this a.m. The patient was on continuous oxygen at 2 liters. She denied any chest pain, no nausea, no vomiting, no diarrhea, no constipation. She denied any headaches and stated that she has been taking her usual medications in the addition of nasal spray. She had a nebulizer at home, and O2. CBC/BMP: 11/14/16 0400 11/14/16 0400 Significant Findings Laboratory Tests Test 11/13/16 11/13/16 11/14/16 15:50 16:10 04:00 Eosinophils (%) (Auto) 6.0 % (0.0-4.0) Eosinophils # (Auto) 0.6 TH/MM3 (0-0.4) Chloride Level 108 MEQ/L (98-107) Blood Urea Nitrogen 21 MG/DL (7-18) 19 MG/DL (7-18) Creatinine 1.03 MG/DL (0.50-1.00) Estimat Glomerular Filtration 52 ML/MIN (>89) 57 ML/MIN (>89) Rate Random Glucose 117 MG/DL 230 MG/DL (74-106) (74-106) Creatine Kinase MB 4.1 NG/ML (0.5-3.6) Troponin I LESS THAN 0.02 NG/ML (0.02-0.05) Arterial Blood pH 7.43 (7.380-7.420) Arterial Blood Partial 37 mmHg (38-42) Pressure CO2 Arterial Blood Partial 140 mmHG Pressure O2 (61-120) Blood Gas Hemoglobin 11.3 G/DL (12.0-16.0) Neutrophils (%) (Auto) 85.4 % (16.0-70.0) Lymphocytes # (Auto) 0.7 TH/MM3 (1.0-4.8) Imaging Last Impressions Chest X-Ray 11/13/16 1539 Signed Impressions: Service Date/Time: Sunday, November 13, 2016 15:56 - CONCLUSION: 1. Prominent interstitial markings in the apices may represent some degree of fibrosis/emphysema, right greater than left. 2. Atelectatic changes above the left hemidiaphragm. 3. Borderline prominent but well compensated heart. 4. No confluent infiltrate. Landon Smith MD PE at Discharge GENERAL: This was a well-developed, female who appeared to be in no acute distress at rest. She was alert and awake, good historian HEAD: Normocephalic without any lesion or mass noted. Facial features appear symmetric. OROPHARYNGEAL: Oropharynx without erythema or edema. NECK: Supple. No nuchal rigidity or lymphadenopathy. Trachea midline without deviation. CARDIAC: Regular rhythm, regular rate, S1 and S2 are heard. Murmur none no gallops or rubs. LUNGS: Few coarse crackles to auscultation right lower lung . No wheeze, no rhonchi or no rale. No use of accessory muscles on inspiration or expiration at rest ABDOMEN: Soft, nontender, no organomegaly or masses. Bowel sounds are heard in all four quadrants. No rebound. No guarding. EXTREMITIES: No edema. Pulses equal bilateral. NEUROLOGICAL: Patient mood and affect appropriate. No focal deficit SKIN:Warm and moist Objective Remarks I feel better today Hospital Course These are the diagnoses that were used to treat patient during this hospital stay and for her plan of care. 1. Chronic obstructive pulmonary disease exacerbation. 2. Hypertension. 3. Diabetes mellitus type 2 uncontrolled. 4. History of osteoarthritis with special attention to the left knee. 5. History of hyperlipidemia. 6. History of possible cardiovascular disorder. Vital signs were reviewed throughout her stay every 4 and as warranted. patient was afebrile, other normal range for her Patient using O2 at 2 L, dual nebs, no acute shortness of breath noted at rest. Patient stated she feels better 24 hours into her admission. Patient does have significant COPD, probably has anxiety when she is hit with acute onset of shortness of breath. Patient initially said she had no O2 at home but probably miss interpreted the question. She does have O2 at home. Discharge planning possible today after examined per , patient's Son lives across the street and she also states she has supportive neighbors who check on her COPD exacerbation, stabilizing with duo nebs, medications, telemetry monitoring , labs Appetite good no nausea vomiting IV antibiotic therapy, initiated on admission for any infectious event. Diabetes mellitus, Accu-Cheks and sliding-scale trends, in no acute issues noted History of osteoarthritis, adequate management no acute issues Dr. Simmons states in her note patient seen and examined breathing comfortably anxious to go home has had diarrhea since am stool c Diff checked which was negative switch to po steroids and antibiotics. Diarrhea could be a reaction to her antibiotics. Patient can take [id number] medications for her diarrhea if needed ok to d/c home discussed with patient Pt Condition on Discharge: Stable Discharge Disposition: Discharge Home Discharge Instructions DIET: Follow Instructions for: Heart Healthy Diet, Diabetic Diet Activities you can perform: Regular-No Restrictions New Medications: Cefuroxime (Ceftin) 500 Mg Tab 500 MG PO BID Infection #14 Ref 0 TAB Prednisone (21) 10 mg tab Dose Pack (Prednisone (21) 10 mg tab Dose Pack) 10 Mg Pack 10 MG PO DIRECTED Inflammation #1 Ref 0 DSPK Continued Medications: Albuterol 8.5 GM Inh (Proair Hfa 8.5 GM Inh) 90 Mcg/Act Aer 2 PUFF INH QID 108 mcg/actuation PRN SHORTNESS OF BREATH #1 Ref 0 INHALER Albuterol Neb (Albuterol Neb) 2.5 Mg/3 Ml Neb 2.5 MG NEB Q6HR NEB PRN SHORTNESS OF BREATH #60 Ref [address] (Aspir-81) 81 Mg Tabdr 81 MG PO DAILY Biotin (Biotin) 5 Mg Tab 5 MG PO BID #1 BOTTLE Cetirizine (Zyrtec Allergy) 10 Mg Tab 10 MG PO DAILY Allergies Ref 0 TAB Enalapril (Enalapril) 10 Mg Tab 10 MG PO BID #60 Ref 0 TAB Levothyroxine (Levothyroxine) 100 Mcg Tab 100 MCG PO DAILY Thyroid #30 Ref 0 TAB Metformin (Metformin) 850 Mg Tab 850 MG PO TIDPC With meals Blood Sugar Management Ref 0 TAB Oxycodone (Oxycodone) 15 Mg Tab 15 MG PO Q6H PRN PAIN Ref 0 TAB Rosuvastatin (Crestor) 10 Mg Tab 10 MG PO HS Cholesterol Management #30 Ref 0 TAB Tiotropium-Olodaterol Inh (Stiolto Respimat Inh) 2.5-2.5 Mcg/Act Aero 1 PUFF INH BID COPD #1 Ref 0 INHALER Additional Information Follow-up with PCP in 1-2 weeks Anita Lewis Nov 15, 2016 17:42
== END 2016-11-15 16:11 | disposition home or self-care (01) ==
LOC: NEPE 15:15 → NEDA 18:38 → NEPFCDU 22:32
PROVIDERS: ADMIT Internal Medicine; ATTEND Internal Medicine
DX: J44.1 Chronic obstructive pulmonary disease with (acute) exacerbation (principal); I25.10 Atherosclerotic heart disease of native coronary artery without angina pectoris; I10 Essential (primary) hypertension; M17.12 Unilateral primary osteoarthritis, left knee; E78.00 Pure hypercholesterolemia, unspecified; K21.9 Gastro-esophageal reflux disease without esophagitis; E11.40 Type 2 diabetes mellitus with diabetic neuropathy, unspecified; E03.9 Hypothyroidism, unspecified; E78.5 Hyperlipidemia, unspecified; E11.65 Type 2 diabetes mellitus with hyperglycemia; Z88.1 Allergy status to other antibiotic agents; Z79.84 Long term (current) use of oral hypoglycemic drugs; Z79.82 Long term (current) use of aspirin; Z99.81 Dependence on supplemental oxygen
CPT/HCPCS: 36600; 71010; 80048; 80053; 82550; 82552; 82805; 82948; 84484; 85025; 87493; 94640; 94664; 96374; 99285; G0378; J0456; J0696; J1644; J2920; J2930; J7050; J7613

== ENCOUNTER 2018-03-09 06:54 | Inpatient (IN) ==
[2018-03-09] MEDS ORDERED: MethylPREDNISolone Sod Succinate Inj 125 MG/2 ML Vial IV.PUSH ONE (07:30)
--- NOTE | 2018-03-09 07:35 | ED ---
HPI General Chief complaint: Chest Pain Stated complaint: chest pain Time Seen by Provider: 03/09/18 07:10 Source: patient and family Mode of arrival: EMS Limitations: no limitations History of Present Illness HPI narrative: This is a 77-year-old woman who presents to the emergency department complaining of chest pain or shortness of breath. She is a history of COPD, on home oxygen. She says he has had heart failure at some point in the past as well. She states over the past 2 days or so she has had progressive increasing shortness of breath and dyspnea on exertion. She has had a little bit of cough cold symptoms as well. Some congestion. Not much productive cough. This morning she was awoken with severe pleuritic right- sided chest pain. She never had similar chest pain in the past. No other aggravating or alleviating factors. She does have a daughter who is visiting who has cough cold symptoms as well. No other complaints. No associated other symptoms. No leg swelling. No nausea vomiting. Related Data Home Medications Medication Instructions Recorded Confirmed enalapril maleate [Vasotec] 5 mg PO BID 03/09/18 03/09/18 levothyroxine [Synthroid] 100 mg PO DAILY 03/09/18 03/09/18 metformin 500 mg PO BID 03/09/18 03/09/18 naproxen sodium [Aleve] 220 mg PO Q6-8H PRN 03/09/18 03/09/18 oxycodone 15 mg PO Q4-6H PRN 03/09/18 03/09/18 rosuvastatin [Crestor] 10 mg PO HS 03/09/18 03/09/18 Allergies Allergy/AdvReac Type Severity Reaction Status Date / Time ciprofloxacin Allergy Severe RASH, ITCH Unverified 04/27/17 15:05 Review of Systems ROS Unobtainable All other systems reviewed negative except as stated in HPI [facility] Medical History Medical History COPD (chronic obstructive pulmonary disease) (Acute) Diabetes (Acute) Gastroesophageal reflux disease (Acute) HTN (hypertension) (Acute) Surgical History Surgical History History of hip replacement (Acute) History of knee replacement (Acute) History of spinal fusion (Acute) Social History Social History Substance History: No History of Abuse Second Hand Smoke Exposure: No Smoking Status: Former smoker How Often Do You Have a Drink Containing Alcohol: Never Recent Travel in [facility] within the Last 8 Weeks: No Recent Out of Country Travel within the Last 8 Weeks: No Exam Narrative Exam Narrative: GENERAL: This is a 77-year-old woman, mild respiratory distress. SKIN: Focused skin assessment warm/dry. HEAD: Atraumatic. Normocephalic. EYES: Pupils equal and round. No scleral icterus. No injection or drainage. ENT: No nasal bleeding or discharge. Mucous membranes pink and moist. NECK: Trachea midline. No JVD. CARDIOVASCULAR: Regular rate and rhythm. No murmur appreciated. RESPIRATORY: Rales bilateral posterior lung lui, more in the lower lui, no rhonchi. No definite wheezing. Mild respiratory distress with tachypnea. GASTROINTESTINAL: Abdomen soft, non-tender, nondistended. Hepatic and splenic margins not palpable. MUSCULOSKELETAL: No obvious deformities. No clubbing. No cyanosis. No edema. NEUROLOGICAL: Awake and alert. No obvious cranial nerve deficits. Motor grossly within normal limits. Normal speech. PSYCHIATRIC: Appropriate mood and affect; insight and judgment normal. Course Initial Documented Vital Signs Temperature 99.7 F H 03/09/18 07:02 Pulse Rate 85 03/09/18 07:02 Respiratory Rate 26 H 03/09/18 07:02 Blood Pressure 194/79 H 03/09/18 07:02 Pulse Oximetry 97 03/09/18 07:02 Last Documented Vital Signs Temperature 99.7 F H 03/09/18 07:21 Pulse Rate 88 03/09/18 10:30 Respiratory Rate 18 03/09/18 10:30 Blood Pressure 137/64 03/09/18 10:30 Pulse Oximetry 93 L 03/09/18 10:30 Medical Decision Making MDM Narrative Medical decision making narrative: This is a 77-year-old woman who presents to the emergency department with. She has rales of the posterior lung lui without a lot of wheezing. She has pleuritic right-sided chest pain that brought her in. Suspect pneumonia and COPD exacerbation. PE seems less likely. Will check d-dimer. Doubt ACS. Initial EKG shows no definite ischemic changes. Will check troponin, serial enzymes. We will plan on likely admission for COPD exacerbation. Lab Data Lab results reviewed: Yes I reviewed the patient's lab results. Result diagrams: 03/09/18 07:41 03/09/18 07:41 Lab Results 03/09/18 03/09/18 03/09/18 Range/Units 07:41 07:41 07:41 WBC (4.0-11.0) th/mm3 RBC (4.00-5.30) mil/mm3 Hgb (11.6-15.3) gm/dL Hct (35.0-46.0) % MCV (80.0-100.0) fL MCH (27.0-34.0) pg MCHC (32.0-36.0) % RDW (11.6-17.2) % Plt Count (150-450) th/mm3 MPV (7.0-11.0) fL Neut % (Auto) (16.0-70.0) % Lymph % (Auto) (9.0-44.0) % [place] % (Auto) (0.0-8.0) % Eos % (Auto) (0.0-4.0) % Baso % (Auto) (0.0-2.0) % Neut # (Auto) (1.8-7.7) th/mm3 Lymph # (Auto) (1.0-4.8) th/mm3 [place] # (Auto) (0.0-0.9) th/mm3 Eos # (Auto) (0.0-0.4) th/mm3 Baso # (Auto) (0.0-0.2) th/mm3 WBC Differential Differential Comment D-Dimer Quant (PE/DVT) 3.91 H (0.00-0.50) mg/L FEU Sodium (136-145) meq/L Potassium (3.5-5.1) meq/L Chloride (98-107) meq/L Carbon Dioxide (21.0-32.0) meq/L Anion Gap (5-15) meq/L BUN (7-18) mg/dL Creatinine (0.50-1.00) mg/dL Estimated GFR (>89) mL/min Random Glucose (74-106) mg/dL Lactic Acid 0.7 (0.4-2.0) mmol/L Calcium (8.5-10.1) mg/dL Magnesium (1.5-2.5) mg/dL Total Bilirubin (0.2-1.0) mg/dL AST (15-37) U/L ALT (10-53) U/L Alkaline Phosphatase (45-117) U/L Troponin I (0.02-0.05) ng/mL B-Natriuretic Peptide 165 H (0-100) pg/mL Total Protein (6.4-8.2) g/dL Albumin (3.4-5.0) g/dL Urine Color (Yellw/Straw) Urine Clarity (Clear) Urine pH (5.0-8.5) Ur Specific [place] (1.002-1.035) Urine Protein (Neg-Trace) mg/dL Urine Glucose (UA) (Negative) mg/dL Urine Ketones (Negative) mg/dL Urine Occult Blood (Negative) Urine Nitrate (Negative) Urine Bilirubin (Negative) Urine Urobilinogen (Less than 2) mg/dL Ur Leukocyte Esterase (Negative) Urine WBC (0-5) /hpf Ur Squamous Epith Cells (0-5) /hpf Hyaline Casts (0-3) /lpf Urine Mucus (Occasional) /lpf Micro UA Comment Urine Culture Comments 03/09/18 03/09/18 03/09/18 Range/Units 07:41 07:41 07:41 WBC 16.8 H (4.0-11.0) th/mm3 RBC 4.03 (4.00-5.30) mil/mm3 Hgb 11.3 L (11.6-15.3) gm/dL Hct 35.1 (35.0-46.0) % MCV 87.2 (80.0-100.0) fL MCH 27.9 (27.0-34.0) pg MCHC 32.0 (32.0-36.0) % RDW 13.6 (11.6-17.2) % Plt Count 225 (150-450) th/mm3 MPV 7.8 (7.0-11.0) fL Neut % (Auto) 88.4 H (16.0-70.0) % Lymph % (Auto) 4.4 L (9.0-44.0) % [place] % (Auto) 6.8 (0.0-8.0) % Eos % (Auto) 0.1 (0.0-4.0) % Baso % (Auto) 0.3 (0.0-2.0) % Neut # (Auto) 14.9 H (1.8-7.7) th/mm3 Lymph # (Auto) 0.7 L (1.0-4.8) th/mm3 [place] # (Auto) 1.1 H (0.0-0.9) th/mm3 Eos # (Auto) 0.0 (0.0-0.4) th/mm3 Baso # (Auto) 0.0 (0.0-0.2) th/mm3 WBC Differential . Differential Comment Auto diff final D-Dimer Quant (PE/DVT) (0.00-0.50) mg/L FEU Sodium 136 (136-145) meq/L Potassium 4.5 (3.5-5.1) meq/L Chloride 103 (98-107) meq/L Carbon Dioxide 26.0 (21.0-32.0) meq/L Anion Gap 7 (5-15) meq/L BUN 17 (7-18) mg/dL Creatinine 1.20 H (0.50-1.00) mg/dL Estimated GFR 43 L (>89) mL/min Random Glucose 149 H (74-106) mg/dL Lactic Acid (0.4-2.0) mmol/L Calcium 9.1 (8.5-10.1) mg/dL Magnesium 1.6 (1.5-2.5) mg/dL Total Bilirubin 0.7 (0.2-1.0) mg/dL AST 12 L (15-37) U/L ALT 14 (10-53) U/L Alkaline Phosphatase 70 (45-117) U/L Troponin I Less than 0.02 L (0.02-0.05) ng/mL B-Natriuretic Peptide (0-100) pg/mL Total Protein 7.9 (6.4-8.2) g/dL Albumin 3.3 L (3.4-5.0) g/dL Urine Color (Yellw/Straw) Urine Clarity (Clear) Urine pH (5.0-8.5) Ur Specific [place] (1.002-1.035) Urine Protein (Neg-Trace) mg/dL Urine Glucose (UA) (Negative) mg/dL Urine Ketones (Negative) mg/dL Urine Occult Blood (Negative) Urine Nitrate (Negative) Urine Bilirubin (Negative) Urine Urobilinogen (Less than 2) mg/dL Ur Leukocyte Esterase (Negative) Urine WBC (0-5) /hpf Ur Squamous Epith Cells (0-5) /hpf Hyaline Casts (0-3) /lpf Urine Mucus (Occasional) /lpf Micro UA Comment Urine Culture Comments 03/09/18 Range/Units 10:10 WBC (4.0-11.0) th/mm3 RBC (4.00-5.30) mil/mm3 Hgb (11.6-15.3) gm/dL Hct (35.0-46.0) % MCV (80.0-100.0) fL MCH (27.0-34.0) pg MCHC (32.0-36.0) % RDW (11.6-17.2) % Plt Count (150-450) th/mm3 MPV (7.0-11.0) fL Neut % (Auto) (16.0-70.0) % Lymph % (Auto) (9.0-44.0) % [place] % (Auto) (0.0-8.0) % Eos % (Auto) (0.0-4.0) % Baso % (Auto) (0.0-2.0) % Neut # (Auto) (1.8-7.7) th/mm3 Lymph # (Auto) (1.0-4.8) th/mm3 [place] # (Auto) (0.0-0.9) th/mm3 Eos # (Auto) (0.0-0.4) th/mm3 Baso # (Auto) (0.0-0.2) th/mm3 WBC Differential Differential Comment D-Dimer Quant (PE/DVT) (0.00-0.50) mg/L FEU Sodium (136-145) meq/L Potassium (3.5-5.1) meq/L Chloride (98-107) meq/L Carbon Dioxide (21.0-32.0) meq/L Anion Gap (5-15) meq/L BUN (7-18) mg/dL Creatinine (0.50-1.00) mg/dL Estimated GFR (>89) mL/min Random Glucose (74-106) mg/dL Lactic Acid (0.4-2.0) mmol/L Calcium (8.5-10.1) mg/dL Magnesium (1.5-2.5) mg/dL Total Bilirubin (0.2-1.0) mg/dL AST (15-37) U/L ALT (10-53) U/L Alkaline Phosphatase (45-117) U/L Troponin I (0.02-0.05) ng/mL B-Natriuretic Peptide (0-100) pg/mL Total Protein (6.4-8.2) g/dL Albumin (3.4-5.0) g/dL Urine Color Yellow (Yellw/Straw) Urine Clarity Clear (Clear) Urine pH 6.0 (5.0-8.5) Ur Specific [place] 1.011 (1.002-1.035) Urine Protein 100 H (Neg-Trace) mg/dL Urine Glucose (UA) 50 (Negative) mg/dL Urine Ketones Trace H (Negative) mg/dL Urine Occult Blood Small H (Negative) Urine Nitrate Negative (Negative) Urine Bilirubin Negative (Negative) Urine Urobilinogen 2.0 H (Less than 2) mg/dL Ur Leukocyte Esterase Negative (Negative) Urine WBC 4 (0-5) /hpf Ur Squamous Epith Cells 1 (0-5) /hpf Hyaline Casts 1 (0-3) /lpf Urine Mucus Few H (Occasional) /lpf Micro UA Comment Culture not ind Urine Culture Comments Culture not ind Imaging Data Radiologist's impression: Chest X-Ray 03/09/18 07:31 CONCLUSION: 1. Stable interstitial fibrosis and left lung base atelectasis/scarring. 2. Minimal patchy airspace disease in the right lung base, presumably atelectasis. Chest CTA 03/09/18 08:33 CONCLUSION: 1. Severe emphysema and scattered parenchymal infiltrates with a mass like focus in the right middle lobe and associated mediastinal and hilar lymphadenopathy. The possibility of a right lung malignancy should be excluded. Given the findings of airspace disease, suggest a short interval follow-up after appropriate clinical therapy to ensure resolution of this finding. Right lower lobe pneumonia, masslike focus, needs follow-up to ensure resolution. 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 Discharge Plan Discharge Disposition Patient Disposition: 30 Still Patient Discharge Details Diagnosis: CAP (community acquired pneumonia) Physicians Team ED Provider: Rene Westbrook Primary Care Provider: Raman Duncan Rxs /Orders / Referrals /Forms Prescriptions: No Action metformin 500 mg Tablet 500 mg PO BID RF: 0 enalapril maleate [Vasotec] 5 mg Tablet 5 mg PO BID RF: 0 oxycodone 15 mg Tablet 15 mg PO Q4-6H PRN (Reason: Headache) RF: 0 levothyroxine [Synthroid] 100 mcg Tablet 100 mg PO DAILY RF: 0 rosuvastatin [Crestor] 10 mg Tablet 10 mg PO HS RF: 0 naproxen sodium [Aleve] 220 mg Capsule 220 mg PO Q6-8H PRN (Reason: Acute Pain) RF: 0 Discharge Instructions Patient Printed Instructions: Chest Pain (ED) Discharge Interventions Interventions: Vital Signs Last Done: 03/09/18 10:30 Status ED Status: With Doctor
--- NOTE | 2018-03-09 08:01 | XR ---
EXAM DATE: 03/09/2018 7:54 AM EDT AGE/SEX: 77 years / Female INDICATIONS: Dyspnea. CLINICAL DATA: This is the patient's initial encounter. Patient reports that signs and symptoms have been present for 2 days and indicates a pain score of 0/10. MEDICAL/SURGICAL HISTORY: Chronic obstructive pulmonary disease. None. [place]PAR[place]: [facility]. . FINDINGS: Redemonstration of diffuse upper lobe predominant interstitial prominence with persistent mild linear parenchymal opacities at the left lung base. There is mild patchy airspace disease in the right lowe r lung zone. Cardiomediastinal contours are within normal limits. Remainder of the exam is unchanged. CONCLUSION: 1. Stable interstitial fibrosis and left lung base atelectasis/scarring. 2. Minimal patchy airspace disease in the right lung base, presumably atelectasis. Electronically signed by: Todd Culp MD 03/09/2018 8:00 AM EDT
[2018-03-09 08:10] LABS: Baso % (Auto) 0.3 % (0.0-2.0); Eos % (Auto) 0.1 % (0.0-4.0); Hematocrit 35.1 % (35.0-46.0); Hemoglobin 11.3 gm/dL (11.6-15.3); Lymph # (Auto) 0.7 th/mm3 (1.0-4.8); Lymph % (Auto) 4.4 % (9.0-44.0); Mean Corpuscular Hemoglobin 27.9 pg (27.0-34.0); Mean Corpuscular Volume 87.2 fL (80.0-100.0); Mean Platelet Volume 7.8 fL (7.0-11.0); Mono # (Auto) 1.1 th/mm3 (0.0-0.9); Mono % (Auto) 6.8 % (0.0-8.0); Neut # (Auto) 14.9 th/mm3 (1.8-7.7); Neut % (Auto) 88.4 % (16.0-70.0); Platelet Count 225 th/mm3 (150-450); Red Blood Count 4.03 mil/mm3 (4.00-5.30); Red Cell Distribution Width 13.6 % (11.6-17.2); White Blood Count 16.8 th/mm3 (4.0-11.0)
[2018-03-09] MEDS ORDERED: Azithromycin Inj 500 MG in Sodium Chlor 0.9% Inj 250 ML IV.SIG ONE (08:13)
[2018-03-09 08:30] LABS: Albumin 3.3 g/dL (3.4-5.0); Anion Gap 7 meq/L (5-15); Aspartate Aminotransferase 12 U/L (15-37); Blood Urea Nitrogen 17 mg/dL (7-18); Calcium 9.1 mg/dL (8.5-10.1); Chloride 103 meq/L (98-107); Glomerular Filtration Rate 43 mL/min (>89); Glucose,Random 149 mg/dL (74-106); Potassium 4.5 meq/L (3.5-5.1); Sodium 136 meq/L (136-145)
[2018-03-09 08:31] LABS: Alanine Aminotransferase 14 U/L (10-53)
[2018-03-09 08:35] LABS: Alkaline Phosphatase 70 U/L (45-117); Total Protein 7.9 g/dL (6.4-8.2)
[2018-03-09 10:49] LABS: Bilirubin,Urine Negative (Negative); Clarity,Urine Clear (Clear); Color,Urine Yellow (Yellw/Straw); Glucose,Urine (UA) 50 mg/dL (Negative); Hyaline Casts,Urine 1 /lpf (0-3); Leukocyte Esterase,Urine Negative (Negative); Mucus,Urine Few /lpf (Occasional); Nitrite,Urine Negative (Negative); Specific Gravity,Urine 1.011 (1.002-1.035); Squamous Epithelial Cell,Urine 1 /hpf (0-5)
--- NOTE | 2018-03-09 12:01 | CT ---
EXAM DATE: 03/09/2018 11:00 AM EDT AGE/SEX: 77 years / Female INDICATIONS: Chest pain, shortness of breath. CLINICAL DATA: This is the patient's initial encounter. Patient reports that signs and symptoms have been present for 1 day and indicates a pain score of 4/10. MEDICAL/SURGICAL HISTORY: Chronic obstructive pulmonary disease. Hypertension. Diabetes. . Spinal fusion. RADIATION DOSE: 19.71 CTDI (mGy) COMPARISON: [facility], CHEST 1V SINGLE AP, 03/09/2018. . TECHNIQUE: Volumetric scanning was performed using a multi-row detector CT scanner during bolus infu devaughn of 75 ml Omnipaque 350 (iohexol) nonionic water-soluble contrast as a single exam dose. The erik a was post processed with a variety of visualization algorithms including full volume maximum intensi ty projection and sliding thin slab reformation. Using automated exposure control and adjustment of the mA and/or kV according to patient size, radiation dose was kept as low as reasonably achievable t o obtain optimal diagnostic quality images. DICOM format image data is available electronically for review and comparison. FINDINGS: Severe emphysematous changes are identified. There is a masslike focus in the right middle lobe measu ring 2.8 cm x 2 cm in transverse and AP dimension on axial image 64 with some air bronchogram formati on seen surrounding this and less confluent adjacent parenchymal infiltrate. Patchy right upper lobe and left upper lobe airspace disease is also seen. There are no effusions. There is lymphadenopathy i n the mediastinum, with a right paratracheal 1.6 cm node, enlarged prevascular nodes up to 1.3 cm in short axis dimension, subcarinal adenopathy up to 2.3 cm in short axis dimension, right hilar adenopa thy up to 1.1 cm in short axis dimension. There is no evidence for pulmonary embolism. Mild elevation of the right hemidiaphragm. CONCLUSION: 1. Severe emphysema and scattered parenchymal infiltrates with a mass like focus in the right middle lobe and associated mediastinal and hilar lymphadenopathy. The possibility of a right lung malignanc y should be excluded. Given the findings of airspace disease, suggest a short interval follow-up afte r appropriate clinical therapy to ensure resolution of this finding. Electronically signed by: Ed Paul MD 03/09/2018 11:06 AM EDT
--- NOTE | 2018-03-09 13:04 | P.HPFP ---
Addendum entered and electronically signed by Cadence Diaz MD, R1 03/09/18 22 :12: Constitutional: [Denies] chills, [Denies] fever(s), [Denies] headache(s), [ Denies]weakness Eyes: [Denies] blurry vision, [Denies] change in vision, [Denies] double vision Ears, Nose, Mouth, and Throat:[Denies] ear pain, reports nasal congestion, [ Denies] nosebleed reports sore throat, [Denies] hoarseness Cardiovascular: [Denies] lightheadedness, [Denies] chest pain, [Denies] palpitations, [Denies] fainting. [Denies] rapid heart rate Respiratory: [Denies] cough, [Denies] shortness of breath Gastrointestinal: [Denies] abdominal pain,[Denies] cramping, [Denies] black, tarry stools, [Denies] bright, red blood in stools, [Denies] nausea, [Denies] vomiting, [Denies] bloating, [Denies] changes in bowel habits Genitourinary: [Denies] blood in urine, [Denies] painful urination, [Denies] urinary urgency, [Denies] urinary frequency, Neurologic: [Denies] numbness, [Denies] tingling, [Denies] dizziness Original Note: History of Present Illness Primary Care Physician: Raman Duncan MD <Contreras Solano - 03/09/18 22:27> Raman Duncan MD <Cadence Diaz - 03/09/18 13:04> History of Present Illness: 77-year-old female presenting to the emergency department with progressive shortness of breath and fatigue. She states that she woke up 2 days ago with URI symptoms including a sore throat and stuffy nose was associated with some shortness of breath requiring extra breathing treatments at home. She states that this morning she woke up at 7 AM and developed a sharp pain in the right side of her mid back/thoracic region is associated with worsening of her shortness of breath. She also states that she began having a cough today that is productive of some yellow sputum. She denies fevers or chills, she denies chest pain, she denies palpitations, she denies cough until today. She does have a history of COPD and pneumonia back in 2008. She follows with pulmonology with Dr. Garza. She states that she is also had a 20 pound weight loss over the course of the last 3-4 months that was unintentional. She does have COPD and is on 2-3 L of oxygen at home continuously and has not required increased oxygen with this current episode. Chest x-ray on admission was concerning for pneumonia and CT of the chest showed interstitial disease associated with a right middle lobe mass and hilar lymphadenopathy that is new for this patient. <Contreras Solano 03/09/18 22:27> Waldo here for right sided back pain as well as difficulty breathing. She reports that she woke up 2 days ago with a sore throat and stuffy nose. She denies any fevers at the time. This morning she had to do an extra breathing treatment at night due to shortness of breath. Woke up at about 7:00 this morning with a sharp pain in the right side of her mid back. Pain is constant no aggravating or alleviating factors. Has a past medical history of COPD on 2- 3 L of oxygen at home. She reports that her COPD has been well controlled on daily breathing treatments. She reports she has had pneumonia vaccine at least one and gets flu shots yearly. She was diagnosed with pneumonia in 2008 and had to be placed in the ICU. She is a former smoker quit in 1991 PMH: DM HTN Hypothyroid COPD HLD Surgical History: 2 TKR R Hip 2010 2000 Spinal fusion FMH: Mom- [place] Dad- HTN Social Hx: Quit smoking 1991, denies alcohol or recreational drugs <Cadence Diaz 03/09/18 14:30> - Diagnosis (1) Pneumonia (2) Lung mass (3) Acute kidney injury (4) Diabetes (5) Hypertension (6) Hypothyroid (7) Chronic pain (8) Nutrition, metabolism, and development symptoms <Contreras Solano 03/09/18 22:27> (1) Pneumonia (2) Lung mass (3) Acute kidney injury (4) Diabetes (5) Hypertension (6) Hypothyroid (7) Chronic pain (8) Nutrition, metabolism, and development symptoms <Cadence Diaz 03/09/18 22:06> Inpatient Certification: I certify that the inpatient services were ordered in accordance with Medicare regulations governing the order. This includes certification that hospital inpatient services are reasonable and necessary and in the case of services not specified as inpatient-only under 42 CFR 419.22(n), that they are appropriately provided as inpatient services in accordance to with the 2-midnight benchmark under 43 CFR 412.3(e) <Contreras Solano 03/09/18 22:27> I certify that the inpatient services were ordered in accordance with Medicare regulations governing the order. 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 <Cadence Diaz 03/09/18 13:04> - Medical History Medical History: Medical History (Last Reviewed 03/09/18 @ 07:47 by Rene Westbrook MD) COPD (chronic obstructive pulmonary disease) Diabetes Gastroesophageal reflux disease HTN (hypertension) <Contreras Solano 03/09/18 22:27> Medical History (Last Reviewed 03/09/18 @ 07:47 by Rene Westbrook MD) COPD (chronic obstructive pulmonary disease) Diabetes Gastroesophageal reflux disease HTN (hypertension) <Cadence Diaz 03/09/18 13:04> - Surgical History Surgical History: Surgical History (Last Reviewed 03/09/18 @ 07:47 by Rene Westbrook MD) History of hip replacement History of knee replacement History of spinal fusion <Contreras Solano 03/09/18 22:27> Surgical History (Last Reviewed 03/09/18 @ 07:47 by Rene Westbrook MD) History of hip replacement History of knee replacement History of spinal fusion <Cadence Diaz 03/09/18 13:04> - Tobacco History Second Hand Smoke Exposure: No <Cadence Diaz 03/09/18 13:04> Tobacco Use In Past 30 Days: No <Cadence Diaz 03/09/18 13:04> Smoking Status: Former smoker <Cadence Diaz 03/09/18 13:04> - Alcohol History How Often Do You Have a Drink Containing Alcohol: Never <Cadence Diaz 03/09 13:04> - Substance Use History Substance History: No History of Abuse <Cadence Diaz 03/09/18 13:04> - Travel History Recent Travel in the [facility] Within the Last 8 Weeks: No <Cadence Diaz 13:04> Recent Travel Out of the Country Within the Last 8 Weeks: No <Cadence Diaz 03/09/18 13:04> - Immunization History Tetanus Immunization: >5 Years <Cadence Diaz 03/09/18 13:04> Hx Influenza Vaccine This Season: Yes <Cadence Diaz 03/09/18 13:04> Medications and Allergies Allergies Allergy/AdvReac Type Severity Reaction Status Date / Time ciprofloxacin Allergy Severe RASH, ITCH Unverified 04/27/17 15:05 <Contreras Solano 03/09/18 22:27> Home Medications Medication Instructions Recorded Confirmed Type enalapril maleate [Vasotec] 5 mg PO BID 03/09/18 03/09/18 History levothyroxine [Synthroid] 100 mg PO DAILY 03/09/18 03/09/18 History metformin 500 mg PO BID 03/09/18 03/09/18 History naproxen sodium [Aleve] 220 mg PO Q6-8H PRN 03/09/18 03/09/18 History oxycodone 15 mg PO Q4-6H PRN 03/09/18 03/09/18 History rosuvastatin [Crestor] 10 mg PO HS 03/09/18 03/09/18 History <Contreras Solano - 03/09/18 22:27> Active Medications: Active Medications Acetaminophen (Tylenol) 650 mg PO Q4H PRN PRN Reason: Temp > 100.4 Al Hydroxide/Mg Hydroxide (Milk Of Magnesia Liq) 30 ml PO Q12H PRN PRN Reason: Mild Constipation Albuterol (Duoneb Neb (Quintin)) 1 ampul NEB Q4HR NEB QUINTIN Last Admin: 03/09/18 19:06 Dose: 1 ampul Albuterol (Albuterol Neb (Prn)) 2.5 mg NEB Q2HR NEB PRN PRN Reason: SHORTNESS OF BREATH Atorvastatin Calcium (Lipitor) 20 mg PO HS [facility] Last Admin: 03/09/18 20:50 Dose: 20 mg Dextrose (D50w Vial) 50 ml IV.PUSH UNSCH PRN PRN Reason: PER HYPOGLYCEMIA PROTOCOL Enalapril Maleate (Vasotec) 5 mg PO BID [facility] Last Admin: 03/09/18 20:50 Dose: 5 mg Glucagon (Glucagon Inj) 1 mg OTHER UNSCH PRN PRN Reason: for Hypoglycemia Protocol Heparin Sodium (Porcine) (Heparin Inj) 5,000 units SQ Q12H [facility] Last Admin: 03/09/18 15:38 Dose: Not Given Azithromycin 500 mg/ Sodium (Chloride) 250 mls @ 250 mls/hr IV.SIG Q24H QUINTIN Ceftriaxone Sodium 2,000 mg/ (Sodium Chloride) 100 mls @ 200 mls/hr IV.SIG Q24H QUINTIN Insulin Aspart (Novolog Insulin Correctional Sugar Inj) 0 unit SQ ACHS [facility]; Protocol Last Admin: 03/09/18 21:35 Dose: 5 unit Levothyroxine Sodium (Synthroid) 100 mcg PO DAILY@0600 [facility] Ondansetron HCl (Zofran Odt) 4 mg PO Q6H PRN PRN Reason: NAUSEA OR VOMITING Oxycodone HCl (Roxicodone) 15 mg PO Q4H PRN PRN Reason: PAIN 1-10 Prednisone (Deltasone) 40 mg PO DAILY [facility] Last Admin: 03/09/18 16:16 Dose: 40 mg Senna/Docusate Sodium (Rin-Colace) 1 tab PO BID [facility] Last Admin: 03/09/18 20:50 Dose: 1 tab Sennosides (Senokot) 17.2 mg PO Q12H PRN PRN Reason: Moderate Constipation <Russ,Contreras - 03/09/18 22:27> Exam Vital signs: Vital Signs 03/09/18 07:02 03/09/18 07:21 03/09/18 07:44 Temperature 99.7 F H 99.7 F H Pulse Rate 85 85 84 Respiratory Rate 26 H 26 H 20 Blood Pressure 194/79 H 194/79 H Pulse Oximetry 97 98 03/09/18 07:55 03/09/18 10:30 03/09/18 16:00 Temperature 98.2 F Pulse Rate 84 88 71 Respiratory Rate 18 18 Blood Pressure 137/64 126/61 Pulse Oximetry 93 L 93 L 03/09/18 16:04 03/09/18 18:00 03/09/18 19:07 Temperature Pulse Rate 73 88 75 Respiratory Rate 18 20 Blood Pressure Pulse Oximetry 93 L Intake & Output 03/09/18 03/09/18 03/10/18 06:59 18:59 06:59 Weight 83.2 kg Other: Weight On Admission 83.2 kg <Contreras Solano - 03/09/18 22:27> Vital Signs 03/09/18 07:02 03/09/18 07:21 03/09/18 07:44 Temperature 99.7 F H 99.7 F H Pulse Rate 85 85 84 Respiratory Rate 26 H 26 H 20 Blood Pressure 194/79 H 194/79 H Pulse Oximetry 97 98 03/09/18 07:55 03/09/18 10:30 Temperature Pulse Rate 84 88 Respiratory Rate 18 Blood Pressure 137/64 Pulse Oximetry 93 L Intake & Output 03/08/18 03/09/18 03/09/18 18:59 06:59 18:59 Weight 83.915 kg <Cadence Diaz 03/09/18 13:04> Narrative: General: Elderly female lying in bed in no obvious distress. Appears comfortable Skin: Warm and dry and intact, no obvious lesions or breakdown CV: Regular rate and rhythm without murmurs Cardiovascular: Left lower and middle lobes with diffuse crackles that are coarse in nature. Scattered expiratory wheezes with moderate air exchange. Left lung areas are clear to auscultation. GI: Abdomen is soft, nontender, nondistended. <Contreras Solano 03/09/18 22:27> GENERAL: Elderly female sitting in bed comfortable no acute distress. SKIN: Warm and dry. HEAD: Normocephalic. EYES: No scleral icterus. No injection or drainage. PERRLA. EOMI. CARDIOVASCULAR: Regular rate and rhythm without murmurs, gallops, or rubs. RESPIRATORY: Coarse breath sounds at bases bilaterally. Isolated expiratory wheezing in the upper right lung field. No accessory muscle use. GASTROINTESTINAL: Abdomen soft, non-tender, nondistended. Normal active bowel sounds MUSCULOSKELETAL: No cyanosis, or edema. <Cadence Diaz 03/09/18 15:59> Results - Labs Result diagrams: 03/09/18 07:41 03/09/18 07:41 <Contreras Solano - 03/09/18 22:27> Abnormal lab results 03/09/18 03/09/18 03/09/18 Range/Units 07:41 07:41 07:41 WBC 16.8 H (4.0-11.0) th/mm3 Hgb 11.3 L (11.6-15.3) gm/dL Neut % (Auto) 88.4 H (16.0-70.0) % Lymph % (Auto) 4.4 L (9.0-44.0) % Neut # (Auto) 14.9 H (1.8-7.7) th/mm3 Lymph # (Auto) 0.7 L (1.0-4.8) th/mm3 Patrick # (Auto) 1.1 H (0.0-0.9) th/mm3 D-Dimer Quant (PE/DVT) 3.91 H (0.00-0.50) mg/L FEU Creatinine (0.50-1.00) mg/dL Estimated GFR (>89) mL/min POC Glucose (68-110) mg/dl Random Glucose (74-106) mg/dL AST (15-37) U/L Troponin I (0.02-0.05) ng/mL B-Natriuretic Peptide 165 H (0-100) pg/mL Albumin (3.4-5.0) g/dL Urine Protein (Neg-Trace) mg/dL Urine Ketones (Negative) mg/dL Urine Occult Blood (Negative) Urine Urobilinogen (Less than 2) mg/dL Urine Mucus (Occasional) /lpf 03/09/18 03/09/18 03/09/18 Range/Units 07:41 10:10 16:18 WBC (4.0-11.0) th/mm3 Hgb (11.6-15.3) gm/dL Neut % (Auto) (16.0-70.0) % Lymph % (Auto) (9.0-44.0) % Neut # (Auto) (1.8-7.7) th/mm3 Lymph # (Auto) (1.0-4.8) th/mm3 Patrick # (Auto) (0.0-0.9) th/mm3 D-Dimer Quant (PE/DVT) (0.00-0.50) mg/L FEU Creatinine 1.20 H (0.50-1.00) mg/dL Estimated GFR 43 L (>89) mL/min POC Glucose 234 H (68-110) mg/dl Random Glucose 149 H (74-106) mg/dL AST 12 L (15-37) U/L Troponin I Less than 0.02 L (0.02-0.05) ng/mL B-Natriuretic Peptide (0-100) pg/mL Albumin 3.3 L (3.4-5.0) g/dL Urine Protein 100 H (Neg-Trace) mg/dL Urine Ketones Trace H (Negative) mg/dL Urine Occult Blood Small H (Negative) Urine Urobilinogen 2.0 H (Less than 2) mg/dL Urine Mucus Few H (Occasional) /lpf 03/09/18 03/09/18 Range/Units 20:14 21:22 WBC (4.0-11.0) th/mm3 Hgb (11.6-15.3) gm/dL Neut % (Auto) (16.0-70.0) % Lymph % (Auto) (9.0-44.0) % Neut # (Auto) (1.8-7.7) th/mm3 Lymph # (Auto) (1.0-4.8) th/mm3 Patrick # (Auto) (0.0-0.9) th/mm3 D-Dimer Quant (PE/DVT) (0.00-0.50) mg/L FEU Creatinine (0.50-1.00) mg/dL Estimated GFR (>89) mL/min POC Glucose 262 H (68-110) mg/dl Random Glucose (74-106) mg/dL AST (15-37) U/L Troponin I Less than 0.02 L (0.02-0.05) ng/mL B-Natriuretic Peptide (0-100) pg/mL Albumin (3.4-5.0) g/dL Urine Protein (Neg-Trace) mg/dL Urine Ketones (Negative) mg/dL Urine Occult Blood (Negative) Urine Urobilinogen (Less than 2) mg/dL Urine Mucus (Occasional) /lpf Short CBC 03/09/18 Range/Units 07:41 WBC 16.8 H (4.0-11.0) th/mm3 Hgb 11.3 L (11.6-15.3) gm/dL Hct 35.1 (35.0-46.0) % Plt Count 225 (150-450) th/mm3 BMP 03/09/18 07:41 Sodium 136 Potassium 4.5 Chloride 103 Carbon Dioxide 26.0 BUN 17 Creatinine 1.20 H Calcium 9.1 Cardiac Enzymes 03/09/18 03/09/18 Range/Units 07:41 20:14 Troponin I Less than 0.02 L Less than 0.02 L (0.02-0.05) ng/mL Liver Function 03/09/18 Range/Units 07:41 Total Bilirubin 0.7 (0.2-1.0) mg/dL AST 12 L (15-37) U/L ALT 14 (10-53) U/L Alkaline Phosphatase 70 (45-117) U/L Albumin 3.3 L (3.4-5.0) g/dL Urine 03/09/18 Range/Units 10:10 Urine Color Yellow (Yellw/Straw) Urine Clarity Clear (Clear) Urine pH 6.0 (5.0-8.5) Ur Specific Harvel 1.011 (1.002-1.035) Urine Protein 100 H (Neg-Trace) mg/dL Urine Glucose (UA) 50 (Negative) mg/dL <Contreras Solano - 03/09/18 22:27> Abnormal lab results 03/09/18 03/09/18 03/09/18 Range/Units 07:41 07:41 07:41 WBC 16.8 H (4.0-11.0) th/mm3 Hgb 11.3 L (11.6-15.3) gm/dL Neut % (Auto) 88.4 H (16.0-70.0) % Lymph % (Auto) 4.4 L (9.0-44.0) % Neut # (Auto) 14.9 H (1.8-7.7) th/mm3 Lymph # (Auto) 0.7 L (1.0-4.8) th/mm3 Patrick # (Auto) 1.1 H (0.0-0.9) th/mm3 D-Dimer Quant (PE/DVT) 3.91 H (0.00-0.50) mg/L FEU Creatinine (0.50-1.00) mg/dL Estimated GFR (>89) mL/min Random Glucose (74-106) mg/dL AST (15-37) U/L Troponin I (0.02-0.05) ng/mL B-Natriuretic Peptide 165 H (0-100) pg/mL Albumin (3.4-5.0) g/dL Urine Protein (Neg-Trace) mg/dL Urine Ketones (Negative) mg/dL Urine Occult Blood (Negative) Urine Urobilinogen (Less than 2) mg/dL Urine Mucus (Occasional) /lpf 03/09/18 03/09/18 Range/Units 07:41 10:10 WBC (4.0-11.0) th/mm3 Hgb (11.6-15.3) gm/dL Neut % (Auto) (16.0-70.0) % Lymph % (Auto) (9.0-44.0) % Neut # (Auto) (1.8-7.7) th/mm3 Lymph # (Auto) (1.0-4.8) th/mm3 Patrick # (Auto) (0.0-0.9) th/mm3 D-Dimer Quant (PE/DVT) (0.00-0.50) mg/L FEU Creatinine 1.20 H (0.50-1.00) mg/dL Estimated GFR 43 L (>89) mL/min Random Glucose 149 H (74-106) mg/dL AST 12 L (15-37) U/L Troponin I Less than 0.02 L (0.02-0.05) ng/mL B-Natriuretic Peptide (0-100) pg/mL Albumin 3.3 L (3.4-5.0) g/dL Urine Protein 100 H (Neg-Trace) mg/dL Urine Ketones Trace H (Negative) mg/dL Urine Occult Blood Small H (Negative) Urine Urobilinogen 2.0 H (Less than 2) mg/dL Urine Mucus Few H (Occasional) /lpf Short CBC 03/09/18 Range/Units 07:41 WBC 16.8 H (4.0-11.0) th/mm3 Hgb 11.3 L (11.6-15.3) gm/dL Hct 35.1 (35.0-46.0) % Plt Count 225 (150-450) th/mm3 BMP 03/09/18 07:41 Sodium 136 Potassium 4.5 Chloride 103 Carbon Dioxide 26.0 BUN 17 Creatinine 1.20 H Calcium 9.1 Cardiac Enzymes 03/09/18 Range/Units 07:41 Troponin I Less than 0.02 L (0.02-0.05) ng/mL Liver Function 03/09/18 Range/Units 07:41 Total Bilirubin 0.7 (0.2-1.0) mg/dL AST 12 L (15-37) U/L ALT 14 (10-53) U/L Alkaline Phosphatase 70 (45-117) U/L Albumin 3.3 L (3.4-5.0) g/dL Urine 03/09/18 Range/Units 10:10 Urine Color Yellow (Yellw/Straw) Urine Clarity Clear (Clear) Urine pH 6.0 (5.0-8.5) Ur Specific Harvel 1.011 (1.002-1.035) Urine Protein 100 H (Neg-Trace) mg/dL Urine Glucose (UA) 50 (Negative) mg/dL <Cadence Diaz E - 03/09/18 13:04> - Imaging Impressions Chest X-Ray 03/09/18 07:31 CONCLUSION: 1. Stable interstitial fibrosis and left lung base atelectasis/scarring. 2. Minimal patchy airspace disease in the right lung base, presumably atelectasis. Chest CTA 03/09/18 08:33 CONCLUSION: 1. Severe emphysema and scattered parenchymal infiltrates with a mass like focus in the right middle lobe and associated mediastinal and hilar lymphadenopathy. The possibility of a right lung malignancy should be excluded. Given the findings of airspace disease, suggest a short interval follow-up after appropriate clinical therapy to ensure resolution of this finding. <Contreras Solano - 03/09/18 22:27> Impressions Chest X-Ray 03/09/18 07:31 CONCLUSION: 1. Stable interstitial fibrosis and left lung base atelectasis/scarring. 2. Minimal patchy airspace disease in the right lung base, presumably atelectasis. Chest CTA 03/09/18 08:33 CONCLUSION: 1. Severe emphysema and scattered parenchymal infiltrates with a mass like focus in the right middle lobe and associated mediastinal and hilar lymphadenopathy. The possibility of a right lung malignancy should be excluded. Given the findings of airspace disease, suggest a short interval follow-up after appropriate clinical therapy to ensure resolution of this finding. <Cadence Diaz - 03/09/18 13:04> Jaydoni VTE Risk Assessment Caprini VTE Risk Assessment: Moderate/High Risk (score >= 2) <Cadence Diaz - 03/09/18 22:08> Caprini Risk Assessment Model: Point Value = 1 Point Value = 2 Point Value = 3 Point Value = 5 Age 41-60 Minor surgery BMI > 25 kg/m2 Swollen legs Varicose veins or History of unexplained or recurrent spontaneous Oral contraceptives or hormone replacement Sepsis (< 1 month) Serious lung disease, including pneumonia (< 1 month) Abnormal pulmonary function Acute myocardial infarction Congestive heart failure (< 1 month) History of inflammatory bowel disease Medical patient at bed rest Age 61-74 Arthroscopic surgery Major open surgery (> 45 min) Laparoscopic surgery (> 45 min) Malignancy Confined to bed (> 72 hours) Immobilizing plaster cast Central venous access Age >= 75 History of VTE Family history of VTE Factor V Leiden Prothrombin [id number] Lupus anticoagulant Anticardiolipin antibodies Elevated serum homocysteine Heparin-induced thrombocytopenia Other congenital or acquired thrombophilia Stroke (< 1 month) Elective arthroplasty Hip, pelvis, or leg fracture Acute spinal cord injury (< 1 month) <Contreras Solano - 03/09/18 22:27> Point Value = 1 Point Value = 2 Point Value = 3 Point Value = 5 Age 41-60 Minor surgery BMI > 25 kg/m2 Swollen legs Varicose veins or History of unexplained or recurrent spontaneous Oral contraceptives or hormone replacement Sepsis (< 1 month) Serious lung disease, including pneumonia (< 1 month) Abnormal pulmonary function Acute myocardial infarction Congestive heart failure (< 1 month) History of inflammatory bowel disease Medical patient at bed rest Age 61-74 Arthroscopic surgery Major open surgery (> 45 min) Laparoscopic surgery (> 45 min) Malignancy Confined to bed (> 72 hours) Immobilizing plaster cast Central venous access Age >= 75 History of VTE Family history of VTE Factor V Leiden Prothrombin [id number] Lupus anticoagulant Anticardiolipin antibodies Elevated serum homocysteine Heparin-induced thrombocytopenia Other congenital or acquired thrombophilia Stroke (< 1 month) Elective arthroplasty Hip, pelvis, or leg fracture Acute spinal cord injury (< 1 month) <Cadence Diaz - 03/09/18 13:04> Prophylaxis Regimen: Total Risk Factor Score Risk Level Prophylaxis Regimen 0-1 Low Early ambulation 2 Moderate Order ONE of the following: *Sequential Compression Device (SCD) *Heparin 5000 units SQ BID 3-4 Higher Order ONE of the following medications: *Heparin 5000 units SQ TID *Enoxaparin/Lovenox 40 mg SQ daily (WT < 150 kg, CrCl > 30 mL/min) *Enoxaparin/Lovenox 30 mg SQ daily (WT < 150 kg, CrCl > 10-29 mL/min) *Enoxaparin/Lovenox 30 mg SQ BID (WT < 150 kg, CrCl > 30 mL/min) AND/OR *Sequential Compression Device (SCD) 5 or more Highest Order ONE of the following medications: *Heparin 5000 units SQ TID (Preferred with Epidurals) *Enoxaparin/Lovenox 40 mg SQ daily (WT < 150 kg, CrCl > 30 mL/min) *Enoxaparin/Lovenox 30 mg SQ daily (WT < 150 kg, CrCl > 10-29 mL/min) *Enoxaparin/Lovenox 30 mg SQ BID (WT < 150 kg, CrCl > 30 mL/min) AND *Sequential Compression Device (SCD) <Contreras Solano - 03/09/18 22:27> Total Risk Factor Score Risk Level Prophylaxis Regimen 0-1 Low Early ambulation 2 Moderate Order ONE of the following: *Sequential Compression Device (SCD) *Heparin 5000 units SQ BID 3-4 Higher Order ONE of the following medications: *Heparin 5000 units SQ TID *Enoxaparin/Lovenox 40 mg SQ daily (WT < 150 kg, CrCl > 30 mL/min) *Enoxaparin/Lovenox 30 mg SQ daily (WT < 150 kg, CrCl > 10-29 mL/min) *Enoxaparin/Lovenox 30 mg SQ BID (WT < 150 kg, CrCl > 30 mL/min) AND/OR *Sequential Compression Device (SCD) 5 or more Highest Order ONE of the following medications: *Heparin 5000 units SQ TID (Preferred with Epidurals) *Enoxaparin/Lovenox 40 mg SQ daily (WT < 150 kg, CrCl > 30 mL/min) *Enoxaparin/Lovenox 30 mg SQ daily (WT < 150 kg, CrCl > 10-29 mL/min) *Enoxaparin/Lovenox 30 mg SQ BID (WT < 150 kg, CrCl > 30 mL/min) AND *Sequential Compression Device (SCD) <Cadence Diaz - 03/09/18 13:04> Assessment and Plan - Assessment (1) Pneumonia Code(s): J18.9 - Pneumonia, unspecified organism Status: Acute Plan: Findings consistent with pneumonia on chest x-ray and CT scan of the chest associated with leukocytosis and shortness of breath IV antibiotics: Azithromycin 500 mg p.o. daily Ceftriaxone 2 g IV daily Started on prednisone 40 mg daily Nasal cannula oxygen to keep saturations at 93% DuoNeb scheduled every 4 hours and albuterol as needed Follow-up CBC in the morning (2) Lung mass Code(s): R91.8 - Other nonspecific abnormal finding of lung field Status: Acute Plan: Right middle lobe lung mass seen on CT with hilar mediastinal lymphadenopathy concerning for malignancy -Treatment as above for pneumonia with IV antibiotics and prednisone Pulmonology consulted to evaluate patient, possible bronchoscopy with biopsy versus MRI of the chest Tumor markers including CEA, CA 19 9, CA 125, and AFP will be ordered (3) Acute kidney injury Code(s): N17.9 - Acute kidney failure, unspecified Status: Acute Plan: Creatinine 1.2 on admission with baseline creatinine of 1.0 -Given IV bolus of 500 mL normal saline -Continue p.o. intake -Repeat BMP in the morning (4) Diabetes Code(s): E11.9 - Type 2 diabetes mellitus without complications Status: Acute Plan: Diabetic diet and sliding scale insulin (5) Hypertension Code(s): I10 - Essential (primary) hypertension Status: Acute Plan: Continue home enalapril 5 mg p.o. twice daily (6) Hypothyroid Code(s): E03.9 - Hypothyroidism, unspecified Status: Acute Plan: Continue home levothyroxine 100 mcg daily (7) Chronic pain Code(s): G89.29 - Other chronic pain Status: Acute Plan: Continue home pain management regimen with oxycodone (8) Nutrition, metabolism, and development symptoms Code(s): R63.8 - Other symptoms and signs concerning food and fluid intake Status: Acute <Russ,Contreras - 03/09/18 22:27> (1) Pneumonia Code(s): J18.9 - Pneumonia, unspecified organism Status: Acute Plan: Pneumonia with leukocytosis at 16.8 and mediastinal and hilar lymphadenopathy -Azithromycin 500 mg daily -Ceftriaxone 2 g daily -Prednisone 40 mg daily -Nasal cannula oxygen -Duo nebs every 4 hours scheduled and albuterol as needed -Follow-up CBC in a.m. (2) Lung mass Code(s): R91.8 - Other nonspecific abnormal finding of lung field Status: Acute Plan: Mass in right lung on imaging today, not previously known to patient. Hilar and mediastinal lymphadenopathy concerning for malignancy. -Consult to pulmonology for question of bronchoscopy and possible biopsy -We will discuss with patient regarding pursuing a diagnosis. -Consideration for tumor markers CEA, CA-19-9, CA 125, AFP (3) Acute kidney injury Code(s): N17.9 - Acute kidney failure, unspecified Status: Acute Plan: Prerenal pattern of BUN/creatinine. Patient's creatinine 1.2 on admission today. -Bolus 500 mL of normal saline. -Continue p.o. hydration. -Repeat BMP in a.m. Baseline creatinine appears to be around 1 or slightly lower. (4) Diabetes Code(s): E11.9 - Type 2 diabetes mellitus without complications Status: Acute Plan: -Diabetic diet -Low-dose sliding scale insulin (5) Hypertension Code(s): I10 - Essential (primary) hypertension Status: Acute Plan: Continue home enalapril 5 mg p.o. twice daily (6) Hypothyroid Code(s): E03.9 - Hypothyroidism, unspecified Status: Acute Plan: Continue home levothyroxine 100 mcg daily (7) Chronic pain Code(s): G89.29 - Other chronic pain Status: Acute Plan: Continue home oxycodone (8) Nutrition, metabolism, and development symptoms Code(s): R63.8 - Other symptoms and signs concerning food and fluid intake Status: Acute Plan: Diet: Diabetic diet Fluids: P.o. at this time DVT prophylaxis: Heparin SQ 5000 units 12 hours <Cadence Diaz - 03/09/18 22:06> - Assessment and Plan Discussed Condition With: Brigido Solano and Natalie <Cadence Diaz - 03/09/18 22:08> <Cadence Diaz - Last Filed: 03/09/18 22:06> (1) Pneumonia Qualifiers: Pneumonia type: due to unspecified organism Laterality: right Lung location : unspecified part of lung Qualified Code(s): J18.9 - Pneumonia, unspecified organism (4) Diabetes Qualifiers: Diabetes mellitus type: type 2 Diabetes mellitus complication status: without complication <Contreras Solano - Alejandro Filed: 03/09/18 22:27> (1) Pneumonia Qualifiers: Pneumonia type: due to unspecified organism Laterality: right Lung location : unspecified part of lung Qualified Code(s): J18.9 - Pneumonia, unspecified organism (4) Diabetes Qualifiers: Diabetes mellitus type: type 2 Diabetes mellitus complication status: without complication <Cadence Diaz Filed: 03/09/18 22:06> (1) Pneumonia Qualifiers: Pneumonia type: due to unspecified organism Laterality: right Lung location : unspecified part of lung Qualified Code(s): J18.9 - Pneumonia, unspecified organism (4) Diabetes Qualifiers: Diabetes mellitus type: type 2 Diabetes mellitus complication status: without complication <Contreras Solano Last Filed: 03/09/18 22:27> (1) Pneumonia Qualifiers: Pneumonia type: due to unspecified organism Laterality: right Lung location : unspecified part of lung Qualified Code(s): J18.9 - Pneumonia, unspecified organism (4) Diabetes Qualifiers: Diabetes mellitus type: type 2 Diabetes mellitus complication status: without complication
[2018-03-09] MEDS ORDERED: Acetaminophen 325 MG Tablet PO PRN (13:09)
[2018-03-09] MEDS ORDERED: Dextrose 50% in Water 50 ML Vial IV.PUSH PRN (14:14)
[2018-03-09] MEDS: Heparin - SQ 10,000 UNITS/ML Vial SQ SCH (15:38)
[2018-03-09] MEDS: predniSONE 20 MG Tablet PO SCH (16:16)
--- NOTE | 2018-03-09 17:02 | ECG ---
Date Performed: 03/09/2018 Time Performed: 07:09:10 PTAGE: 77 years EKG: ECTOPIC ATRIAL RHYTHM RIGHT BUNDLE BRANCH BLOCK LEFT ANTERIOR FASCICULAR BLOCK ABNORMAL ECG Since the PREVIOUS TRACING , no significant change noted DOCTOR: Lilliana Reddy Interpretating Date/Time 03/09/2018 17:01:48
[2018-03-09] MEDS ORDERED: Sodium Chlor 0.9% Inj 500 ML IV.SIG ONE (17:14)
[2018-03-09] MEDS: Insulin NovoLOG Aspart Correctional Sugar Inj SQ SCH ×2 (19:13→21:35)
[2018-03-09] MEDS: Senna/Docusate Sodium 8.6/50 MG Tablet PO SCH (20:50)
[2018-03-10] MEDS: Heparin - SQ 10,000 UNITS/ML Vial SQ SCH ×2 (00:22→12:28)
[2018-03-10] MEDS: Levothyroxine 100 MCG Tablet PO SCH (05:22)
[2018-03-10 05:56] LABS: Baso % (Auto) 0.1 % (0.0-2.0); Hematocrit 34.4 % (35.0-46.0); Hemoglobin 11.3 gm/dL (11.6-15.3); Lymph # (Auto) 0.6 th/mm3 (1.0-4.8); Lymph % (Auto) 5.6 % (9.0-44.0); Mean Corpuscular HGB Conc 32.8 % (32.0-36.0); Mean Corpuscular Hemoglobin 28.6 pg (27.0-34.0); Mean Corpuscular Volume 87.2 fL (80.0-100.0); Mono # (Auto) 0.5 th/mm3 (0.0-0.9); Mono % (Auto) 5.1 % (0.0-8.0); Neut # (Auto) 9.4 th/mm3 (1.8-7.7); Neut % (Auto) 89.2 % (16.0-70.0); Platelet Count 217 th/mm3 (150-450); Red Blood Count 3.94 mil/mm3 (4.00-5.30); Red Cell Distribution Width 13.9 % (11.6-17.2); White Blood Count 10.5 th/mm3 (4.0-11.0)
[2018-03-10 06:15] LABS: Calcium 9.5 mg/dL (8.5-10.1)
[2018-03-10] MEDS: Senna/Docusate Sodium 8.6/50 MG Tablet PO SCH ×2 (08:56→21:19)
[2018-03-10] MEDS: predniSONE 20 MG Tablet PO SCH (08:56)
[2018-03-10] MEDS: Insulin NovoLOG Aspart Correctional Sugar Inj SQ SCH ×4 (08:58→21:21)
[2018-03-10] MEDS ORDERED: Azithromycin Inj 500 MG in Sodium Chlor 0.9% Inj 250 ML IV.SIG SCH (09:00)
--- NOTE | 2018-03-10 11:56 | P.PNFP ---
Subjective Interval history: Patient seen and examined today. Cough improving. Chest pain improving. Denies nausea, vomiting, fever, chills, abdominal pain, shortness of breath. Patient states that she feels as though she is improving. No other complaints at this time. <NatalieHussein - 03/10/18 11:56> Results - Labs Result diagrams: 03/10/18 05:31 03/10/18 05:32 <Contreras Solano - 03/10/18 21:04> Abnormal lab results 03/09/18 03/09/18 03/10/18 Range/Units 20:14 21:22 05:31 RBC 3.94 L (4.00-5.30) mil/mm3 Hgb 11.3 L (11.6-15.3) gm/dL Hct 34.4 L (35.0-46.0) % Neut % (Auto) 89.2 H (16.0-70.0) % Lymph % (Auto) 5.6 L (9.0-44.0) % Neut # (Auto) 9.4 H (1.8-7.7) th/mm3 Lymph # (Auto) 0.6 L (1.0-4.8) th/mm3 BUN (7-18) mg/dL Creatinine (0.50-1.00) mg/dL Estimated GFR (>89) mL/min POC Glucose 262 H (68-110) mg/dl Random Glucose (74-106) mg/dL Troponin I Less than 0.02 L (0.02-0.05) ng/mL 03/10/18 03/10/18 03/10/18 Range/Units 05:32 07:05 11:37 RBC (4.00-5.30) mil/mm3 Hgb (11.6-15.3) gm/dL Hct (35.0-46.0) % Neut % (Auto) (16.0-70.0) % Lymph % (Auto) (9.0-44.0) % Neut # (Auto) (1.8-7.7) th/mm3 Lymph # (Auto) (1.0-4.8) th/mm3 BUN 22 H (7-18) mg/dL Creatinine 1.22 H (0.50-1.00) mg/dL Estimated GFR 43 L (>89) mL/min POC Glucose 180 H 161 H (68-110) mg/dl Random Glucose 200 H (74-106) mg/dL Troponin I (0.02-0.05) ng/mL 03/10/18 03/10/18 Range/Units 17:30 19:47 RBC (4.00-5.30) mil/mm3 Hgb (11.6-15.3) gm/dL Hct (35.0-46.0) % Neut % (Auto) (16.0-70.0) % Lymph % (Auto) (9.0-44.0) % Neut # (Auto) (1.8-7.7) th/mm3 Lymph # (Auto) (1.0-4.8) th/mm3 BUN (7-18) mg/dL Creatinine (0.50-1.00) mg/dL Estimated GFR (>89) mL/min POC Glucose 188 H 207 H (68-110) mg/dl Random Glucose (74-106) mg/dL Troponin I (0.02-0.05) ng/mL Short CBC 03/10/18 Range/Units 05:31 WBC 10.5 (4.0-11.0) th/mm3 Hgb 11.3 L (11.6-15.3) gm/dL Hct 34.4 L (35.0-46.0) % Plt Count 217 (150-450) th/mm3 BMP 03/10/18 05:32 Sodium 140 Potassium 4.0 Chloride 105 Carbon Dioxide 25.0 BUN 22 H Creatinine 1.22 H Calcium 9.5 Cardiac Enzymes 03/09/18 Range/Units 20:14 Troponin I Less than 0.02 L (0.02-0.05) ng/mL <Contreras Solano - 03/10/18 21:04> Abnormal lab results 03/09/18 03/09/18 03/09/18 Range/Units 16:18 20:14 21:22 RBC (4.00-5.30) mil/mm3 Hgb (11.6-15.3) gm/dL Hct (35.0-46.0) % Neut % (Auto) (16.0-70.0) % Lymph % (Auto) (9.0-44.0) % Neut # (Auto) (1.8-7.7) th/mm3 Lymph # (Auto) (1.0-4.8) th/mm3 BUN (7-18) mg/dL Creatinine (0.50-1.00) mg/dL Estimated GFR (>89) mL/min POC Glucose 234 H 262 H (68-110) mg/dl Random Glucose (74-106) mg/dL Troponin I Less than 0.02 L (0.02-0.05) ng/mL 03/10/18 03/10/18 03/10/18 Range/Units 05:31 05:32 07:05 RBC 3.94 L (4.00-5.30) mil/mm3 Hgb 11.3 L (11.6-15.3) gm/dL Hct 34.4 L (35.0-46.0) % Neut % (Auto) 89.2 H (16.0-70.0) % Lymph % (Auto) 5.6 L (9.0-44.0) % Neut # (Auto) 9.4 H (1.8-7.7) th/mm3 Lymph # (Auto) 0.6 L (1.0-4.8) th/mm3 BUN 22 H (7-18) mg/dL Creatinine 1.22 H (0.50-1.00) mg/dL Estimated GFR 43 L (>89) mL/min POC Glucose 180 H (68-110) mg/dl Random Glucose 200 H (74-106) mg/dL Troponin I (0.02-0.05) ng/mL 03/10/18 Range/Units 11:37 RBC (4.00-5.30) mil/mm3 Hgb (11.6-15.3) gm/dL Hct (35.0-46.0) % Neut % (Auto) (16.0-70.0) % Lymph % (Auto) (9.0-44.0) % Neut # (Auto) (1.8-7.7) th/mm3 Lymph # (Auto) (1.0-4.8) th/mm3 BUN (7-18) mg/dL Creatinine (0.50-1.00) mg/dL Estimated GFR (>89) mL/min POC Glucose 161 H (68-110) mg/dl Random Glucose (74-106) mg/dL Troponin I (0.02-0.05) ng/mL Short CBC 03/10/18 Range/Units 05:31 WBC 10.5 (4.0-11.0) th/mm3 Hgb 11.3 L (11.6-15.3) gm/dL Hct 34.4 L (35.0-46.0) % Plt Count 217 (150-450) th/mm3 BMP 03/10/18 05:32 Sodium 140 Potassium 4.0 Chloride 105 Carbon Dioxide 25.0 BUN 22 H Creatinine 1.22 H Calcium 9.5 Cardiac Enzymes 03/09/18 Range/Units 20:14 Troponin I Less than 0.02 L (0.02-0.05) ng/mL <Junior Estrada 03/10/18 11:56> - Imaging Impressions Chest CTA 03/09/18 08:33 CONCLUSION: 1. Severe emphysema and scattered parenchymal infiltrates with a mass like focus in the right middle lobe and associated mediastinal and hilar lymphadenopathy. The possibility of a right lung malignancy should be excluded. Given the findings of airspace disease, suggest a short interval follow-up after appropriate clinical therapy to ensure resolution of this finding. <Junior Estrada 03/10/18 11:56> Physical Exam Vital signs: Vital Signs 03/10/18 00:00 03/10/18 00:10 03/10/18 00:35 Temperature 97.9 F Pulse Rate 68 81 66 Respiratory Rate 14 17 Blood Pressure 118/60 Pulse Oximetry 95 96 03/10/18 04:00 03/10/18 04:28 03/10/18 08:00 Temperature 97.8 F 98.2 F Pulse Rate 54 L 64 76 Respiratory Rate 14 16 18 Blood Pressure 119/54 L 117/55 L Pulse Oximetry 94 L 97 95 03/10/18 08:10 03/10/18 09:00 03/10/18 11:26 Temperature Pulse Rate 80 76 92 H Respiratory Rate 16 16 Blood Pressure Pulse Oximetry 94 L 03/10/18 12:00 03/10/18 16:00 03/10/18 16:04 Temperature 98.0 F 98.0 F Pulse Rate 95 H 97 H 84 Respiratory Rate 18 18 17 Blood Pressure 141/63 H 143/67 H Pulse Oximetry 96 95 03/10/18 17:54 Temperature Pulse Rate 105 H Respiratory Rate Blood Pressure Pulse Oximetry Intake & Output 03/10/18 03/10/18 03/11/18 06:59 18:59 06:59 Intake Total 750 / 750 1070 / 1070 Output Total 700 / 700 Balance 750 / 750 370 / 370 Intake: IV 500 / 500 350 / 350 Azithromycin Inj 500 MG In NS 250 / 250 Inj 250 ML @ 250 mls/hr IV.SIG Q24H [facility] Rx#:[id number] Rocephin Inj 2,000 MG In NS Inj 100 / 100 100 ML @ 200 mls/hr IV.SIG Q24H CHARLA Rx#:[id number] Oral 250 / 250 720 / 720 Output: Urine 700 / 700 Other: # Voids 2 Date of Last Bowel Movement 03/10/18 # Bowel Movements 4 <Contreras Solano - 03/10/18 21:04> Vital Signs 03/09/18 16:00 03/09/18 16:04 03/09/18 18:00 Temperature 98.2 F Pulse Rate 71 73 88 Respiratory Rate 18 18 Blood Pressure 126/61 Pulse Oximetry 93 L 93 L 03/09/18 19:07 03/09/18 20:00 03/10/18 00:00 Temperature 97.8 F 97.9 F Pulse Rate 75 90 68 Respiratory Rate 20 18 14 Blood Pressure 128/61 118/60 Pulse Oximetry 95 95 03/10/18 00:10 03/10/18 00:35 03/10/18 04:00 Temperature 97.8 F Pulse Rate 81 66 54 L Respiratory Rate 17 14 Blood Pressure 119/54 L Pulse Oximetry 96 94 L 03/10/18 04:28 03/10/18 08:00 03/10/18 08:10 Temperature 98.2 F Pulse Rate 64 70 80 Respiratory Rate 16 18 16 Blood Pressure 117/55 L Pulse Oximetry 97 95 94 L 03/10/18 11:26 Temperature Pulse Rate 92 H Respiratory Rate 16 Blood Pressure Pulse Oximetry Intake & Output 03/09/18 03/10/18 03/10/18 18:59 06:59 18:59 Intake Total 250 / 250 350 / 350 Balance 250 / 250 350 / 350 Weight 83.2 kg Intake: IV 350 / 350 Azithromycin Inj 500 MG In NS 250 / 250 Inj 250 ML @ 250 mls/hr IV.SIG Q24H [facility] Rx#:[id number] Rocephin Inj 2,000 MG In NS Inj 100 / 100 100 ML @ 200 mls/hr IV.SIG Q24H [facility] Rx#:[id number] Oral 250 / 250 Other: # Voids 2 Weight On Admission 83.2 kg <Junior Estrada - 03/10/18 11:56> Narrative: GENERAL: Laying in bed, no acute distress SKIN: Warm and dry. HEAD: Normocephalic. EYES: No scleral icterus. No injection or drainage. NECK: Supple, trachea midline. No JVD or lymphadenopathy. CARDIOVASCULAR: Regular rate and rhythm without murmurs, gallops, or rubs. RESPIRATORY: Breath sounds equal bilaterally. Minimal crackles at bases, improved from yesterday. No accessory muscle use. GASTROINTESTINAL: Abdomen soft, non-tender, nondistended. MUSCULOSKELETAL: No cyanosis, or edema. BACK: Nontender without obvious deformity. No CVA tenderness. <Junior Estrada - 03/10/18 11:56> Assessment and Plan - Assessment (1) Pneumonia Code(s): J18.9 - Pneumonia, unspecified organism Status: Acute (2) Lung mass Code(s): R91.8 - Other nonspecific abnormal finding of lung field Status: Acute (3) Acute kidney injury Code(s): N17.9 - Acute kidney failure, unspecified Status: Acute (4) Diabetes Code(s): E11.9 - Type 2 diabetes mellitus without complications Status: Acute (5) Hypertension Code(s): I10 - Essential (primary) hypertension Status: Acute (6) Hypothyroid Code(s): E03.9 - Hypothyroidism, unspecified Status: Acute (7) Chronic pain Code(s): G89.29 - Other chronic pain Status: Acute (8) Nutrition, metabolism, and development symptoms Code(s): R63.8 - Other symptoms and signs concerning food and fluid intake Status: Acute <Contreras Solano - 03/10/18 21:04> (1) Pneumonia Code(s): J18.9 - Pneumonia, unspecified organism Status: Acute Plan: Findings consistent with pneumonia on chest x-ray and CT scan of the chest associated with leukocytosis and shortness of breath IV antibiotics: Azithromycin 500 mg p.o. daily Ceftriaxone 2 g IV daily -F/U Dr. Garza recommendations Started on prednisone 40 mg daily Nasal cannula oxygen to keep saturations at 93% DuoNeb scheduled every 4 hours and albuterol as needed (2) Lung mass Code(s): R91.8 - Other nonspecific abnormal finding of lung field Status: Acute Plan: Right middle lobe lung mass seen on CT with hilar mediastinal lymphadenopathy concerning for malignancy -Treatment as above for pneumonia with IV antibiotics and prednisone Pulmonology consulted to evaluate patient, possible bronchoscopy with biopsy versus MRI of the chest Tumor markers including CEA, CA 19 9, CA 125, and AFP will be ordered (3) Acute kidney injury Code(s): N17.9 - Acute kidney failure, unspecified Status: Acute Plan: Creatinine 1.2 on admission with baseline creatinine of 1.0. mild increase to 1.22 -Continue p.o. intake -Repeat BMP in the morning (4) Diabetes Code(s): E11.9 - Type 2 diabetes mellitus without complications Status: Acute Plan: Diabetic diet and sliding scale insulin (5) Hypertension Code(s): I10 - Essential (primary) hypertension Status: Acute Plan: Continue home enalapril 5 mg p.o. twice daily (6) Hypothyroid Code(s): E03.9 - Hypothyroidism, unspecified Status: Acute Plan: Continue home levothyroxine 100 mcg daily (7) Chronic pain Code(s): G89.29 - Other chronic pain Status: Acute Plan: Continue home pain management regimen with oxycodone (8) Nutrition, metabolism, and development symptoms Code(s): R63.8 - Other symptoms and signs concerning food and fluid intake Status: Acute Plan: Diet: Diabetic diet Fluids: P.o. at this time DVT prophylaxis: Heparin SQ 5000 units 12 hours <Junior Estrada - 03/10/18 11:50> - Attending Attestation Pt. examined independently and case discussed with resident physicians. I have read the above note and agree with the assessment and plan as discussed with me. I was involved in all medical decision making for this patient. Contreras Solano MD <Contreras Solano - 03/10/18 21:04> <Junior Estrada A - Last Filed: 03/10/18 11:50> (1) Pneumonia Qualifiers: Pneumonia type: due to unspecified organism Laterality: right Lung location : unspecified part of lung Qualified Code(s): J18.9 - Pneumonia, unspecified organism (4) Diabetes Qualifiers: Diabetes mellitus type: type 2 Diabetes mellitus complication status: without complication <Contreras Solano - Last Filed: 03/10/18 21:04> (1) Pneumonia Qualifiers: Pneumonia type: due to unspecified organism Laterality: right Lung location : unspecified part of lung Qualified Code(s): J18.9 - Pneumonia, unspecified organism (4) Diabetes Qualifiers: Diabetes mellitus type: type 2 Diabetes mellitus complication status: without complication <Junior Estrada - Last Filed: 03/10/18 11:50> (1) Pneumonia Qualifiers: Pneumonia type: due to unspecified organism Laterality: right Lung location : unspecified part of lung Qualified Code(s): J18.9 - Pneumonia, unspecified organism (4) Diabetes Qualifiers: Diabetes mellitus type: type 2 Diabetes mellitus complication status: without complication <Contreras Solano - Last Filed: 03/10/18 21:04> (1) Pneumonia Qualifiers: Pneumonia type: due to unspecified organism Laterality: right Lung location : unspecified part of lung Qualified Code(s): J18.9 - Pneumonia, unspecified organism (4) Diabetes Qualifiers: Diabetes mellitus type: type 2 Diabetes mellitus complication status: without complication
[2018-03-10 13:05] LABS: Alpha Fetoprotein Tumor Marker 2.6 ng/mL (0.5-8.0); Carcinoembryonic Antigen 4.3 ng/mL (0.2-5.0)
--- NOTE | 2018-03-10 16:44 | MB ---
cc: Canelo Garza MD, Jose R MD DATE: 03/10/2018 HISTORY OF PRESENT ILLNESS: Ms. Haas is a 77-year-old white female whom I have followed now for a little over a year, with COPD and interstitial lung disease, as well as pulmonary hypertension and left ventricular diastolic dysfunction. She presented to the hospital with cough, congestion, purulent sputum, hypoxemia and a chest x-ray, which initially suggested pneumonia, followed by a CT scan which revealed an infiltrate in the right mid lung and some scattered upper lobe infiltrates with hilar and mediastinal lymph node enlargement. The patient, at the time of this consultation, about 24 hours after admission, was feeling much better. She has been treated with antibiotics, bronchodilators, and steroids along with oxygen. She was a former smoker of 40-50 pack years, quit smoking entirely in 1990. She had had an exposure to multiple family members recently that were visiting. At least one of her daughters was ill and had to see a physician and was treated with antibiotics. No recent travel outside of the area. No unusual animal exposures. White count was also elevated on admission at 16.8. BNP was mildly elevated at 165. ADDITIONAL PAST MEDICAL HISTORY: Hypertension, type 2 diabetes, obesity, right and left total knee replacements, degenerative arthritis, CHF, allergic rhinitis, a serious pneumonia with an intensive care admission in 2008, has not required ventilatory support in the past. No prior history of thromboembolic disease. She has hypothyroid and also had a lumbosacral spine fusion for arthritis. ALLERGIES: CIPRO CAUSED A RASH. MEDICATIONS: Reviewed in the EMR. SOCIAL HISTORY: Does not drink alcohol. Distant history of smoking, but quit in 1990. , manages her own affairs. Has several children, one of her daughters is here with her today and another daughter is visiting in [place], but all of her family [place] in the [place]. REVIEW OF SYSTEMS: Prior to this admission, things had been stable. No progressive weight loss, loss of appetite, chest pain, hemoptysis, or increased edema. PHYSICAL EXAMINATION: VITAL SIGNS: Temperature 99 degrees, blood pressure 130/70, pulse 80, respirations 18-22. HEENT: Sclerae are anicteric. Mucous membranes are moist. NECK: No palpable adenopathy in the neck or supraclavicular region. CHEST: Some scattered congestion, but no wheezing, no basilar rales. HEART: Regular rhythm. No harsh murmur. EXTREMITIES: No peripheral edema or calf tenderness. IMAGING STUDIES: CT scan is reviewed and she has a nodular infiltrate in the right mid lung field with associated hilar adenopathy and some scattered mediastinal adenopathy as well. DISCUSSION: Ms. Haas presents with a clinical picture consistent with pneumonia. She does have underlying chronic obstructive pulmonary disease and fibrosis. Question has been raised as to significance of the adenopathy, possible underlying malignancy. Certainly, that is a concern, particularly in light of the prior smoking history, but at this point she is improving on therapy, and I think we can complete a course of therapy for pneumonia and then within the next several weeks, do a followup CT scan. I have explained to both the patient and her daughter, who is at her bedside, it is very important that we do followup on this because if these abnormalities do not resolve, she will need further diagnostic intervention, probably bronchoscopy to evaluate for possible underlying malignancy. I am actually scheduled to be away for several days. I have talked at length with the hospitalist who is caring for her. They will plan to stabilize her condition and send her home probably within the next couple of days to complete a course of antibiotics. I have asked her to call my office next week if she is released so that we can schedule a followup and again at that point, we will arrange for a followup scan. She will call my office post-discharge when I return if problems occur prior to followup. R. MD SARAVANAN Watson/KADI , 04:24 PM , 04:35 PM
[2018-03-10 20:12] LABS: Cancer Antigen 125 20.4 U/mL (0.0-30.2)
[2018-03-10 20:13] LABS: Cancer Antigen 19-9 18.1 U/mL (0.0-35.0)
[2018-03-11] MEDS: Heparin - SQ 10,000 UNITS/ML Vial SQ SCH ×2 (00:47→12:57)
[2018-03-11] MEDS: Levothyroxine 100 MCG Tablet PO SCH (05:47)
[2018-03-11 07:34] LABS: Baso % (Auto) 0.3 % (0.0-2.0); Eos % (Auto) 0.1 % (0.0-4.0); Hematocrit 31.7 % (35.0-46.0); Hemoglobin 10.3 gm/dL (11.6-15.3); Lymph # (Auto) 1.5 th/mm3 (1.0-4.8); Lymph % (Auto) 13.2 % (9.0-44.0); Mean Corpuscular HGB Conc 32.6 % (32.0-36.0); Mean Corpuscular Hemoglobin 28.7 pg (27.0-34.0); Mean Corpuscular Volume 88.2 fL (80.0-100.0); Mean Platelet Volume 8.7 fL (7.0-11.0); Mono # (Auto) 0.9 th/mm3 (0.0-0.9); Mono % (Auto) 7.9 % (0.0-8.0); Neut # (Auto) 8.8 th/mm3 (1.8-7.7); Neut % (Auto) 78.5 % (16.0-70.0); Platelet Count 241 th/mm3 (150-450); Red Blood Count 3.59 mil/mm3 (4.00-5.30); Red Cell Distribution Width 13.8 % (11.6-17.2); White Blood Count 11.3 th/mm3 (4.0-11.0)
[2018-03-11 07:57] LABS: Carbon Dioxide 24.8 meq/L (21.0-32.0); Potassium 3.9 meq/L (3.5-5.1)
[2018-03-11] MEDS: Insulin NovoLOG Aspart Correctional Sugar Inj SQ SCH ×2 (08:48→12:59)
[2018-03-11] MEDS: Senna/Docusate Sodium 8.6/50 MG Tablet PO SCH (08:49)
[2018-03-11] MEDS: predniSONE 20 MG Tablet PO SCH (08:50)
[2018-03-11] MEDS ORDERED: Azithromycin 250 MG Tablet PO SCH (09:00)
[2018-03-11 09:12] VITALS: TEMP 98
--- NOTE | 2018-03-11 11:13 | P.PNFP ---
Subjective Interval history: Ms Haas had no overnight events. She reports that her breathing is back to her baseline breathing at home. She has not had a bowel movement today and reports that the diarrhea is lessening. She denies fevers, nausea, vomiting, abdominal pain, chest pain. <Cadence Diaz - 03/11/18 11:12> Results - Labs Result diagrams: 03/11/18 06:15 03/11/18 06:15 <Contreras Solano - 03/11/18 15:27> Abnormal lab results 03/10/18 03/10/18 03/11/18 Range/Units 17:30 19:47 06:15 WBC 11.3 H (4.0-11.0) th/mm3 RBC 3.59 L (4.00-5.30) mil/mm3 Hgb 10.3 L (11.6-15.3) gm/dL Hct 31.7 L (35.0-46.0) % Neut % (Auto) 78.5 H (16.0-70.0) % Neut # (Auto) 8.8 H (1.8-7.7) th/mm3 Chloride (98-107) meq/L BUN (7-18) mg/dL Creatinine (0.50-1.00) mg/dL Estimated GFR (>89) mL/min POC Glucose 188 H 207 H (68-110) mg/dl Random Glucose (74-106) mg/dL 03/11/18 03/11/18 Range/Units 06:15 11:58 WBC (4.0-11.0) th/mm3 RBC (4.00-5.30) mil/mm3 Hgb (11.6-15.3) gm/dL Hct (35.0-46.0) % Neut % (Auto) (16.0-70.0) % Neut # (Auto) (1.8-7.7) th/mm3 Chloride 108 H (98-107) meq/L BUN 25 H (7-18) mg/dL Creatinine 1.06 H (0.50-1.00) mg/dL Estimated GFR 50 L (>89) mL/min POC Glucose 203 H (68-110) mg/dl Random Glucose 107 H (74-106) mg/dL Short CBC 03/11/18 Range/Units 06:15 WBC 11.3 H (4.0-11.0) th/mm3 Hgb 10.3 L (11.6-15.3) gm/dL Hct 31.7 L (35.0-46.0) % Plt Count 241 (150-450) th/mm3 [facility] 03/11/18 06:15 Sodium 141 Potassium 3.9 Chloride 108 H Carbon Dioxide 24.8 BUN 25 H Creatinine 1.06 H Calcium 9.0 <Contreras Solano - 03/11/18 15:27> Abnormal lab results 03/10/18 03/10/18 03/10/18 Range/Units 11:37 17:30 19:47 WBC (4.0-11.0) th/mm3 RBC (4.00-5.30) mil/mm3 Hgb (11.6-15.3) gm/dL Hct (35.0-46.0) % Neut % (Auto) (16.0-70.0) % Neut # (Auto) (1.8-7.7) th/mm3 Chloride (98-107) meq/L BUN (7-18) mg/dL Creatinine (0.50-1.00) mg/dL Estimated GFR (>89) mL/min POC Glucose 161 H 188 H 207 H (68-110) mg/dl Random Glucose (74-106) mg/dL 03/11/18 03/11/18 Range/Units 06:15 06:15 WBC 11.3 H (4.0-11.0) th/mm3 RBC 3.59 L (4.00-5.30) mil/mm3 Hgb 10.3 L (11.6-15.3) gm/dL Hct 31.7 L (35.0-46.0) % Neut % (Auto) 78.5 H (16.0-70.0) % Neut # (Auto) 8.8 H (1.8-7.7) th/mm3 Chloride 108 H (98-107) meq/L BUN 25 H (7-18) mg/dL Creatinine 1.06 H (0.50-1.00) mg/dL Estimated GFR 50 L (>89) mL/min POC Glucose (68-110) mg/dl Random Glucose 107 H (74-106) mg/dL Short CBC 03/11/18 Range/Units 06:15 WBC 11.3 H (4.0-11.0) th/mm3 Hgb 10.3 L (11.6-15.3) gm/dL Hct 31.7 L (35.0-46.0) % Plt Count 241 (150-450) th/mm3 BMP 03/11/18 06:15 Sodium 141 Potassium 3.9 Chloride 108 H Carbon Dioxide 24.8 BUN 25 H Creatinine 1.06 H Calcium 9.0 <Cadence Diaz - 03/11/18 11:12> Physical Exam Vital signs: Vital Signs 03/10/18 16:00 03/10/18 16:04 03/10/18 17:54 Temperature 98.0 F Pulse Rate 97 H 84 105 H Respiratory Rate 18 17 Blood Pressure 143/67 H Pulse Oximetry 95 03/10/18 20:00 03/10/18 21:06 03/10/18 23:35 Temperature 98.0 F Pulse Rate 74 76 87 Respiratory Rate 18 18 16 Blood Pressure 144/63 H Pulse Oximetry 94 L 97 03/11/18 00:00 03/11/18 03:22 03/11/18 04:00 Temperature 97.9 F 97.4 F L Pulse Rate 85 71 73 Respiratory Rate 18 19 18 Blood Pressure 154/74 H 133/60 Pulse Oximetry 96 96 03/11/18 08:00 03/11/18 08:05 03/11/18 11:28 Temperature 98 F Pulse Rate 73 73 88 Respiratory Rate 18 12 12 Blood Pressure 131/62 Pulse Oximetry 95 99 03/11/18 12:00 Temperature 98 F Pulse Rate 92 H Respiratory Rate 18 Blood Pressure 183/80 H Pulse Oximetry 94 L Intake & Output 03/10/18 03/11/18 03/11/18 18:59 06:59 18:59 Intake Total 1070 / 1070 240 / 240 100 / 100 Output Total 700 / 700 Balance 370 / 370 240 / 240 100 / 100 Weight 84 kg Intake: IV 350 / 350 100 / 100 Azithromycin Inj 500 MG In NS 250 / 250 Inj 250 ML @ 250 mls/hr IV.SIG Q24H [facility] Rx#:[id number] Rocephin Inj 2,000 MG In NS Inj 100 / 100 100 / 100 100 ML @ 200 mls/hr IV.SIG Q24H [facility] Rx#:[id number] Oral 720 / 720 240 / 240 Output: Urine 700 / 700 Other: # Voids 2 Date of Last Bowel Movement 03/10/18 03/10/18 # Bowel Movements 4 <Contreras Solano - 03/11/18 15:27> Vital Signs 03/10/18 11:26 03/10/18 12:00 03/10/18 16:00 Temperature 98.0 F 98.0 F Pulse Rate 92 H 95 H 97 H Respiratory Rate 16 18 18 Blood Pressure 141/63 H 143/67 H Pulse Oximetry 96 95 03/10/18 16:04 03/10/18 17:54 03/10/18 20:00 Temperature 98.0 F Pulse Rate 84 105 H 74 Respiratory Rate 17 18 Blood Pressure 144/63 H Pulse Oximetry 94 L 03/10/18 21:06 03/10/18 23:35 03/11/18 00:00 Temperature 97.9 F Pulse Rate 76 87 85 Respiratory Rate 18 16 18 Blood Pressure 154/74 H Pulse Oximetry 97 96 03/11/18 03:22 03/11/18 04:00 03/11/18 08:00 Temperature 97.4 F L 98 F Pulse Rate 71 73 76 Respiratory Rate 19 18 18 Blood Pressure 133/60 131/62 Pulse Oximetry 96 95 03/11/18 08:05 Temperature Pulse Rate 73 Respiratory Rate 12 Blood Pressure Pulse Oximetry 99 Intake & Output 03/10/18 03/11/18 03/11/18 18:59 06:59 18:59 Intake Total 1070 / 1070 240 / 240 100 / 100 Output Total 700 / 700 Balance 370 / 370 240 / 240 100 / 100 Weight 84 kg Intake: IV 350 / 350 100 / 100 Azithromycin Inj 500 MG In NS 250 / 250 Inj 250 ML @ 250 mls/hr IV.SIG Q24H [facility] Rx#:[id number] Rocephin Inj 2,000 MG In NS Inj 100 / 100 100 / 100 100 ML @ 200 mls/hr IV.SIG Q24H [facility] Rx#:[id number] Oral 720 / 720 240 / 240 Output: Urine 700 / 700 Other: # Voids 2 Date of Last Bowel Movement 03/10/18 # Bowel Movements 4 <Cadence Diaz - 03/11/18 11:12> Narrative: GENERAL: Laying in bed, no acute distress CARDIOVASCULAR: Regular rate and rhythm without murmurs, gallops, or rubs. RESPIRATORY: Breath sounds equal bilaterally. Sporadic crackles at bilateral bases. No accessory muscle use. GASTROINTESTINAL: Abdomen soft, non-tender, nondistended. Normoactive bowel sounds MUSCULOSKELETAL: No cyanosis, or edema. <Cadence Diaz Franklyn - 03/11/18 11:12> Assessment and Plan - Assessment (1) Pneumonia Code(s): J18.9 - Pneumonia, unspecified organism Status: Acute (2) Lung mass Code(s): R91.8 - Other nonspecific abnormal finding of lung field Status: Acute (3) Acute kidney injury Code(s): N17.9 - Acute kidney failure, unspecified Status: Acute (4) Diabetes Code(s): E11.9 - Type 2 diabetes mellitus without complications Status: Acute (5) Hypertension Code(s): I10 - Essential (primary) hypertension Status: Acute (6) Hypothyroid Code(s): E03.9 - Hypothyroidism, unspecified Status: Acute (7) Chronic pain Code(s): G89.29 - Other chronic pain Status: Acute (8) Nutrition, metabolism, and development symptoms Code(s): R63.8 - Other symptoms and signs concerning food and fluid intake Status: Acute <Contreras Solano - 03/11/18 15:27> (1) Pneumonia Code(s): J18.9 - Pneumonia, unspecified organism Status: Acute Plan: Findings consistent with pneumonia on chest x-ray and CT scan of the chest associated with leukocytosis and shortness of breath Patient transitioned to p.o. azithromycin 250 mg yesterday IV antibiotics: Ceftriaxone 2 g IV daily -F/U Dr. Garza recommendations Started on prednisone 40 mg daily Nasal cannula oxygen to keep saturations at 93% DuoNeb scheduled every 4 hours and albuterol as needed (2) Lung mass Code(s): R91.8 - Other nonspecific abnormal finding of lung field Status: Acute Plan: Right middle lobe lung mass seen on CT with hilar mediastinal lymphadenopathy concerning for malignancy -Treatment as above for pneumonia with IV antibiotics and prednisone Pulmonology consulted to evaluate patient, she is known to Dr. Garza. Follow- up on outpatient basis Tumor markers including CEA, CA 19 9, CA 125, and AFP within normal limits (3) Acute kidney injury Code(s): N17.9 - Acute kidney failure, unspecified Status: Acute Plan: Creatinine 1.2 on admission with baseline creatinine of 1.0. -Improving -Continue p.o. intake -Repeat BMP in the morning (4) Diabetes Code(s): E11.9 - Type 2 diabetes mellitus without complications Status: Acute Plan: Diabetic diet and sliding scale insulin (5) Hypertension Code(s): I10 - Essential (primary) hypertension Status: Acute Plan: Continue home enalapril 5 mg p.o. twice daily (6) Hypothyroid Code(s): E03.9 - Hypothyroidism, unspecified Status: Acute Plan: Continue home levothyroxine 100 mcg daily (7) Chronic pain Code(s): G89.29 - Other chronic pain Status: Acute Plan: Continue home pain management regimen with oxycodone (8) Nutrition, metabolism, and development symptoms Code(s): R63.8 - Other symptoms and signs concerning food and fluid intake Status: Acute Plan: Diet: Diabetic diet Fluids: P.o. at this time DVT prophylaxis: Heparin SQ 5000 units 12 hours <Cadence Diaz - 03/11/18 11:04> - Assessment and Plan Discussed Condition With: Brigido Solano and Natalie <Cadence Diaz - 03/11/18 11:12> Discharge Planning: Possible DC within next 24-48 hours <Cadence Diaz 03/11/18 11:12> - Attending Attestation Patient examined independently and case discussed with resident physicians I have read the above note and agree with the assessment/plan as discussed with me I was involved in all medical decision making for this patient Plan to discharge patient home today to finish out course of oral antibiotics with Augmentin and azithromycin Continue steroid for total of 5 days Contreras Solano MD <Contreras Solano - 03/11/18 15:27> <JoeCadence E - Last Filed: 03/11/18 11:04> (1) Pneumonia Qualifiers: Pneumonia type: due to unspecified organism Laterality: right Lung location : unspecified part of lung Qualified Code(s): J18.9 - Pneumonia, unspecified organism (4) Diabetes Qualifiers: Diabetes mellitus type: type 2 Diabetes mellitus complication status: without complication <Contreras Solano - Last Filed: 03/11/18 15:27> (1) Pneumonia Qualifiers: Pneumonia type: due to unspecified organism Laterality: right Lung location : unspecified part of lung Qualified Code(s): J18.9 - Pneumonia, unspecified organism (4) Diabetes Qualifiers: Diabetes mellitus type: type 2 Diabetes mellitus complication status: without complication <Cadence Diaz E - Last Filed: 03/11/18 11:04> (1) Pneumonia Qualifiers: Pneumonia type: due to unspecified organism Laterality: right Lung location : unspecified part of lung Qualified Code(s): J18.9 - Pneumonia, unspecified organism (4) Diabetes Qualifiers: Diabetes mellitus type: type 2 Diabetes mellitus complication status: without complication <Contreras Solano - Last Filed: 03/11/18 15:27> (1) Pneumonia Qualifiers: Pneumonia type: due to unspecified organism Laterality: right Lung location : unspecified part of lung Qualified Code(s): J18.9 - Pneumonia, unspecified organism (4) Diabetes Qualifiers: Diabetes mellitus type: type 2 Diabetes mellitus complication status: without complication
[2018-03-15 17:58] VITALS: PULSE 92
[2018-03-15 18:11] VITALS: BP 183/80; RESP 18; O2SAT 94
== END 2018-03-11 15:33 | disposition home or self-care (01) ==
LOC: NEPE 06:54 → NEDA 12:48 → N04 14:34
PROVIDERS: ADMIT Family Medicine; ATTEND Family Medicine